=== PATIENT | female | born 1955 | race Caucasian/White ===

== ENCOUNTER 2022-01-10 12:14 | Emergency (ER) | payer OTHER, SELFPAY ==
[2022-01-10 13:00] VITALS: BP 237/125; PULSE 79; RESP 18; TEMP 37.3; O2SAT 100; BMI 31.8
[2022-01-10] MEDS: valACYclovir HCL 1,000 MG TABLET 1000 MG PO (14:35)
[2022-01-10] MEDS: Fluorescein Sodium STRIP 1 STRIP EYE-RIGHT (14:36)
[2022-01-10] MEDS: Tetracaine HCl/PF 0.5% Oph Sol 4 ML DROPS 3 DROP EYE-RIGHT (14:36)
[2022-01-10 14:37] VITALS: BP 200/120; PULSE 92; RESP 16; O2SAT 99
[2022-01-10] MEDS: Ondansetron ODT 4 MG TAB.RAPDIS TRANSLINGU (14:48)
--- NOTE | 2022-01-11 21:30 | ED.GENADULT ---
HPI - General Adult General Chief complaint: Skin/Abscess/Foreign Body Stated complaint: shingles Time Seen by Provider: 01/10/22 13:43 History of Present Illness HPI narrative: patient complains of blisters around the right eye which have been there for 5 or 6 days and now the eye itself is starting to hurt, she believes she has shingles, she denies any vision loss Related Data Previous Rx's Medication Instructions Recorded ondansetron 4 mg disintegrating 4 mg PO Q6H PRN nausea and 01/10/22 tablet vomiting #10 tabs valacyclovir 1 gram tablet 1,000 mg PO TID 7 days #21 tabs 01/10/22 (Valtrex) Allergies Allergy/AdvReac Type Severity Reaction Status Date / Time Penicillins [PENICILLINS] Allergy Mild STOMACH Verified 01/10/22 13:00 UPSET Review of Systems Review of Systems: positive for right eye pain as well as blistering rash around right eye Negatives no fever no chills no headache no vision loss no discharge from eye no neck pain no chest pain no shortness of breath no vomiting no weakness or numbness Yes all other systems are reviewed and are negative [facility] Past Medical History Source: nursing notes reviewed Social History Social History Advance Directives: No Advance Directives Information Provided: No Physical Exam ED Vital Signs: BMI result Body Mass Index 31.8 general appearance no distress There is a unilateral blistering rash consistent with shingles are on a red base surrounding the right orbit and on the right eyelid Visual acuity was done with no acute vision loss noted Neck was supple Respiratory no distress Extremities full range of motion x4 Neuro no focal deficit Course Course Course Narrative: out of concern for shingles in the right eye we called the eye doctor constanza who agreed to see the patient and she was sent over to the eye doctor It was noted that her blood pressure was very high, 237/125 and a repeat reading of 200/120 The patient has no chest pain no choke symptoms the only symptom she have with are the rash around her right eye She does not like 0 to the doctor and attributes her high blood pressure to fear of going to the doctor, I advised her that numbers this higher very likely not from fear of going to the doctor but are likely hypertension I offered to do bloods and discuss starting a medication from the ER which she refused, I did let her know she was very welcome to come back this same day after she goes to the eye doctor I also advised keeping a record at home as she was concerned this might only be from stress of being in the hospital so I advised home blood pressure cuff and keep a close record of the readings and go to a primary care doctor Her agreed to do this if she does not come back here and also agreed to facilitate a primary care appointment And I did inform her of the serious consequences of untreated high blood pressure and she will come back if she develops any concerning symptoms Discharge Plan Discharge Clinical Impression: Shingles Patient Disposition: Home, Self-Care Additional Instructions: We are concerned about the shingles around her eye socket as it can go into the eye and cause blindness and serious eye problems We called the eye doctor Jacob who can see you now so go straight to his office when you leave here Your blood pressure was very high the 1st reading was 237/125 and the 2nd reading was about 206/120 If you have no primary doctor, you can come back here for us to recheck it and if need be we would discuss whether not to start a blood pressure medication from the ER, but right now the eye doctor's office will close and that is the priority right now so go to the eye doctor and you are welcome to come back here for further evaluation of her blood pressure after the eye visit Return any time any worse condition or any concerns Prescriptions: New valacyclovir [Valtrex] 1 gram tablet 1,000 mg PO TID 7 Days Qty: 21 0RF ondansetron 4 mg tablet,disintegrating 4 mg PO Q6H PRN (Reason: nausea and vomiting) Qty: 10 0RF Referrals: Anjel Caballero [Physician] - (Shingles around the right eye) Stand Alone Forms: Work/School Release Interventions: ED Discharge Assessment Last Done: 01/10/22 14:58 Discharge Date/Time: 01/10/22 15:03
== END 2022-01-10 15:03 | disposition home or self-care (01) ==
PROVIDERS: Emergency Provider Emergency Medicine
DX: B02.9 Zoster without complications (principal)
CPT/HCPCS: 99283

== ENCOUNTER 2022-01-12 01:41 | Emergency (ER) | payer OTHER, SELFPAY ==
--- NOTE | ~2022-01-12 | CT_ITS ---
EXAMINATION: CT HEAD WITHOUT CONTRAST CLINICAL INFORMATION: Shingles. Confusion. Rule out encephalitis. COMPARISON: None TECHNIQUE: Contiguous axial imaging was performed from the skull base to vertex without intravenous administration of contrast. This CT examination was performed using dose optimization techniques as appropriate, variously including the following: *Automated exposure control *Adjustment of mA and/or kV according to patient size (this includes techniques or standardized protocols for targeted exams where dose is matched to indication/reason for exam; i.e. extremities or head) *Use of iterative reconstruction technique DLP: 608 mGy-cm FINDINGS: There is no evidence of acute intracranial hemorrhage or territorial infarction. No abnormal mass effect or midline shift is seen. Soler to white matter differentiation is well preserved. No extra-axial fluid collections are identified. No hydrocephalus. No significant volume loss. There is no abnormal attenuation within the brain parenchyma. No acute osseous abnormality. Mild right periorbital soft tissue swelling. Orbits unremarkable. The mastoid air cells and visualized portions of the paranasal sinuses are well aerated. CT/CT head/brain wo IV con IMPRESSION: No acute intracranial pathology.
--- NOTE | ~2022-01-12 | XR_ITS ---
EXAMINATION: XR CHEST CLINICAL INFORMATION: Shingles, confusion and rule out pneumonia. COMPARISON: 08/01/2013 TECHNIQUE: 2 views of the chest were obtained. FINDINGS: Normal symmetric lung volumes. No parenchymal consolidation. No pleural effusion. No pneumothorax. Cardiomediastinal silhouette and pulmonary vascularity are within normal limits. No acute osseous abnormalities. XR/XR chest 2V IMPRESSION: No acute findings
[2022-01-12 02:09] VITALS: PULSE 123; RESP 20; O2SAT 98; BMI 30.9
--- NOTE | 2022-01-12 02:10 | PC.NURSE ---
pt refused blood pressure in triage
--- NOTE | 2022-01-12 02:30 | ECG_ITS ---
Test Reason : ALTERED MENTAL Blood Pressure : / mmHG Vent. Rate : 100 BPM Atrial Rate : 100 BPM P-R Int : 160 ms QRS Dur : 102 ms QT Int : 362 ms P-R-T Axes : 062 -39 126 degrees QTc Int : 466 ms Normal sinus rhythm Left axis deviation Left ventricular hypertrophy with repolarization abnormality ( R in aVL , Juan Daniel product , Romhilt-Romero ) Abnormal ECG When compared with ECG of 01-AUG-2013 22:42, Questionable change in QRS duration T wave inversion now evident in Lateral leads Referred By: Generic ED Physician Electronically Signed By:CARLI LUONG
--- NOTE | 2022-01-12 03:01 | ED_ITS ---
HPI - General Adult General Chief complaint: General Medical Stated complaint: eye problem Time Seen by Provider: 01/12/22 02:34 Source: patient Mode of arrival: ambulatory Limitations: no limitations History of Present Illness HPI narrative: 66-year-old female who presents emergency department for evaluation of visual hallucinations, nausea, confusion. The patient was seen here in the emergency department on 01/11/2022 ( 2 days prior to evaluation) and diagnosed with shingles to the right side of her face. Apparently the patient has been having symptoms of shingles for approximately 5-6 days prior to evaluation. Patient was also noted to have very high blood pressures during that evaluation, patient was not on antihypertensives. The patient also is complaining of discomfort in her right eye therefore she was sent to the on-call crimping machine operator. Patient states she was evaluated but not started on any eyedrops for shingles. She states that yesterday she was in hotel room for her daughter's wedding. She states that while she was in no tell room she states the carpet started moving and waving an d she recognize that she was having visual hallucinations. She denied headache but states that she is having pain on the right side of her face in the area of the shingles. She denied stiff neck. She states she has been having persistent nausea has had very little to eat and drink over the past 3 days. She denied vomiting. She believes that she is very dehydrated and is requesting IV fluid. Related Data Previous Rx's Medication Instructions Recorded ondansetron 4 mg disintegrating 4 mg PO Q6H PRN nausea and 01/10/22 tablet vomiting #10 tabs valacyclovir 1 gram tablet 1,000 mg PO TID 7 days #21 tabs 01/10/22 (Valtrex) Allergies Allergy/AdvReac Type Severity Reaction Status Date / Time Penicillins [PENICILLINS] Allergy Mild STOMACH Verified 01/10/22 13:00 UPSET Review of Systems Review of Systems: Yes all other systems are reviewed and are negative [facility] Past Medical History [facility] Narrative: past medical history: Hypertension which is untreated, SVT. Past surgical history: None. 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 She denies tobacco use but is a former smoker and stop smoking in 1995. She denies alcohol use. She denies drug use. Social History Social History Alcohol intake: never Patient Tobacco Use Status: Never used Tobacco Use of substances other than those prescribed or required for medical reasons: No Advance Directives: No Advance Directives Information Provided: No Physical Exam ED Vital Signs: Vital Signs - 24 hr 01/12/22 02:09 01/12/22 03:38 01/12/22 06:22 Temperature 97.9 F 98.3 F Pulse Rate 123 H 113 H 111 H Respiratory Rate 20 16 21 H Blood Pressure 132/115 H 241/121 H Pulse Oximetry 98 98 99 Oxygen Delivery Method Room Air Room Air Room Air BMI result Body Mass Index 30.9 Const Other: Awake, alert, female patient, she does answer questions but occasionally gets confused and has difficulty answering some questions. Orientation/consciousness: oriented to person and oriented to place HENMS Other: The patient has an erythematous rash to her right forehead, around her right eye in the rash extends along the right side of her head to the septal area, there are crusted over lesions that are consistent with shingles, I do not see any new vesicular lesions. Ears: external ears normal General nose exam: Normal external nose present Mouth: Normal oral and palatal mucosa present Throat: Yes posterior oropharynx normal Eyes General: appearance normal, both eyes and all related structures Pupils: Equal, round and reactive pupils present Neck Neck: Yes normal visual inspection, Yes no lymphadenopathy, Yes trachea midline and Yes supple Chest Chest palpation & inspection: normal inspection of the chest and normal palpation of entire chest wall Resp Effort & Inspection: normal respiratory effort and able to speak in complete sentences Auscultation: clear to auscultation bilaterally Cardio Rate: regular rate Rhythm: regular rhythm Heart sounds: S1 normal heart sound present, S2 normal heart sound present and no murmurs GI Inspection: Yes normal to inspection Palpation (GI): Soft to palpation, nontender and no guarding Auscultation: normal bowel sounds General: Yes no CVA tenderness Back/Spine/Pelvis Back: no CVA tenderness Skin General skin exam: no rashes or lesions noted Neuro General: oriented to person and oriented to place Cranial nerves: Yes CN's II-XII intact bilaterally and Yes Equal, round and reactive pupils present Motor exam (neuro): 5/5 motor strength present throughout Extrem General: Yes normal to inspection Psych Appearance: grossly normal Speech and movement: Normal speech and movement present Affect: normal affect Attitude: cooperative Thought process: Other thought process findings present ( Occasionally the patient appears to be confused when answering questions) Thought content: Normal thought content present Course Course Course Narrative: 66-year-old female who presents emergency department for evaluation of visual hallucinations, confusion, right-sided facial pain secondary to shingles which she has had for approximately 1 week. The patient was seen here 2 days prior diagnosed with shingles, she was started on valacyclovir. She was also referred to Ophthalmology for evaluation of shingles of the eye but did not get started on any eyedrops. The patient has had constant nausea but has had no vomiting, she states she has had poor food and fluid intake over the past 3 days. Cris everette's neurologic exam is normal at this time. I am concerned that the patient may be developing a viral encephalitis I did discuss this with her. The patient however rejects this diagnosis and believes that her symptoms are secondary to the valacyclovir and she states she does not live take this anymore. The patient states she is very claustrophobic and she is not certain if she can do the CT scan but she is willing to try it. I did offer her medications but she refused being premedicated with any anti anxiety or psychiatric medications. I did order laboratory evaluation to include a CBC, BMP, liver panel, CRP, ESR, TSH, troponin, blood cultures x2. The patient was also ordered to get a chest x-ray two view and CT scan of the head without IV contrast. 0749: Laboratory evaluation: BUN and creatinine elevated at 47 and 4.22. GFR is low at 10. PTT elevated 76.7. High sensitivity troponin I elevated at 57.4. CPK elevated 4630. CRP elevated 0.9. ESR elevated 67. COVID-19 negative. Radiology evaluation: Chest x-ray unremarkable. CT scan of the brain without IV contrast, unremarkable. The patient the's CT scan the brain being normal is somewhat reassuring however the patient still may have viral encephalitis. I did discuss getting a lumbar puncture but she refused this intervention. I also discussed treatment with IV acyclovir but she refused this treatment as well. I did inform the patient that she has severe renal failure most likely secondary to rhabdomyolysis and possibly secondary to volume depletion /dehydration. I told her that she needs to be hospitalized for further management but she is refusing to be hospitalized at this time. The patient was going to leave against medical advice but she did agree to stay and get a total of 3 L of normal saline IV . She requested that with then repeat the BMP, troponin and CPK. I did tell her that even if these numbers improved she still would need to be hospitalized. The patient is aware that if she leaves the hospital against medical advice she could go into severe renal failure,develop uremic encephalopathy and but she still states that she does not want to stay in the hospital and that she lost to leave against medical advice. At the end of my shift, the patient's care was turned over to my colleague, Dr. Melissa Jack. Medical Decision Making Lab Data Result diagrams: 01/12/22 03:25 01/12/22 03:25 Labs: Lab Results 01/12/22 01/12/22 01/12/22 Range/Units 03:25 03:25 03:25 WBC 9.0 (4.8-10.8) X10*3/uL RBC 4.27 (4.20-5.50) X10*6/uL Hgb 12.4 (12.0-16.0) g/dl Hct 37.9 (37.0-47.0) % MCV 88.8 (80.0-98.0) fL MCH 29.0 (27.0-33.0) pg MCHC 32.7 (31.0-35.0) g/dl RDW 12.9 (11.0-16.0) % Plt Count 346 (160-400) X10*3/uL MPV 9.5 (9.4-12.3) fL Immature Gran % (Auto) 0.3 (0.0-0.4) % Neut % (Auto) 69.0 (45-73) % Lymph % (Auto) 15.9 L (20-40) % Elbert % (Auto) 12.9 H (2-11) % Eos % (Auto) 1.2 (0-4) % Baso % (Auto) 0.7 (0-2) % Lymph # (Auto) 1.4 (1.2-4.9) X10*3/uL Elbert # (Auto) 1.2 (0.1-1.2) X10*3/uL Eos # (Auto) 0.1 (0.0-0.4) X10*3/uL Baso # (Auto) 0.1 (0.0-0.2) X10*3/uL Abs Immat Gran (auto) 0.03 (0.00-0.03) X10*3/uL Absolute Neuts (auto) 6.2 (2.0-8.3) x10*3/uL Absolute Nucleated RBC 0.000 (0.0-0.012) X10*3/uL Nucleated RBC % (auto) 0.0 (0.0-0.2) /100WBC ESR 67 H (0-20) MM/HR PT (10.0-13.1) SEC INR (0.9-1.1) APTT (26.0-36.4) SEC Sodium 137 (135-145) mmol/L Potassium 4.9 (3.3-5.1) mmol/L Chloride 107 (96-108) mmol/L Carbon Dioxide 18 L (22-29) mmol/L Anion Gap 17 (12-20) BUN 47 H (9-16) mg/dL Creatinine 4.22 H* (0.5-1.4) mg/dL Estim Creat Clear Calc 12.8 Estimated GFR 10 Random Glucose 113 (60-115) mg/dL Lactic Acid (0.5-2.0) mmol/L Calcium 9.5 (8.4-10.2) mg/dL Total Bilirubin (0.0-1.0) mg/dL Direct Bilirubin (0.0-0.5) mg/dL AST (5-31) U/L ALT (0-31) U/L Alkaline Phosphatase (39-117) U/L Total Creatine Kinase (26-140) U/L Troponin I High Sens (<3.5-17.0) ng/L C-Reactive Protein (< or = 0.50) mg/dL Total Protein (6.5-8.0) g/dL Albumin (3.5-5.0) g/dL Lipase (8-78) U/L TSH (0.32-4.0) uIU/mL Ethyl Alcohol mg/dL COVID-19 ([facility]) (Negative) COVID-19 Clin Com 01/12/22 01/12/22 01/12/22 Range/Units 03:25 03:25 03:25 WBC (4.8-10.8) X10*3/uL RBC (4.20-5.50) X10*6/uL Hgb (12.0-16.0) g/dl Hct (37.0-47.0) % MCV (80.0-98.0) fL MCH (27.0-33.0) pg MCHC (31.0-35.0) g/dl RDW (11.0-16.0) % Plt Count (160-400) X10*3/uL MPV (9.4-12.3) fL Immature Gran % (Auto) (0.0-0.4) % Neut % (Auto) (45-73) % Lymph % (Auto) (20-40) % Elbert % (Auto) (2-11) % Eos % (Auto) (0-4) % Baso % (Auto) (0-2) % Lymph # (Auto) (1.2-4.9) X10*3/uL Elbert # (Auto) (0.1-1.2) X10*3/uL Eos # (Auto) (0.0-0.4) X10*3/uL Baso # (Auto) (0.0-0.2) X10*3/uL Abs Immat Gran (auto) (0.00-0.03) X10*3/uL Absolute Neuts (auto) (2.0-8.3) x10*3/uL Absolute Nucleated RBC (0.0-0.012) X10*3/uL Nucleated RBC % (auto) (0.0-0.2) /100WBC ESR (0-20) MM/HR PT 11.0 (10.0-13.1) SEC INR 1.0 (0.9-1.1) APTT 76.7 H* (26.0-36.4) SEC Sodium (135-145) mmol/L Potassium (3.3-5.1) mmol/L Chloride (96-108) mmol/L Carbon Dioxide (22-29) mmol/L Anion Gap (12-20) BUN (9-16) mg/dL Creatinine (0.5-1.4) mg/dL Estim Creat Clear Calc Estimated GFR Random Glucose (60-115) mg/dL Lactic Acid (0.5-2.0) mmol/L Calcium (8.4-10.2) mg/dL Total Bilirubin 0.5 (0.0-1.0) mg/dL Direct Bilirubin < 0.2 (0.0-0.5) mg/dL AST 141 H (5-31) U/L ALT 46 H (0-31) U/L Alkaline Phosphatase 111 (39-117) U/L Total Creatine Kinase 4630 H (26-140) U/L Troponin I High Sens 57.4 H* (<3.5-17.0) ng/L C-Reactive Protein 0.90 H (< or = 0.50) mg/dL Total Protein 7.3 (6.5-8.0) g/dL Albumin 4.3 (3.5-5.0) g/dL Lipase 27 (8-78) U/L TSH 2.26 (0.32-4.0) uIU/mL Ethyl Alcohol < 10 mg/dL COVID-19 ([facility]) (Negative) COVID-19 Clin Com 01/12/22 01/12/22 Range/Units 03:26 03:28 WBC (4.8-10.8) X10*3/uL RBC (4.20-5.50) X10*6/uL Hgb (12.0-16.0) g/dl Hct (37.0-47.0) % MCV (80.0-98.0) fL MCH (27.0-33.0) pg MCHC (31.0-35.0) g/dl RDW (11.0-16.0) % Plt Count (160-400) X10*3/uL MPV (9.4-12.3) fL Immature Gran % (Auto) (0.0-0.4) % Neut % (Auto) (45-73) % Lymph % (Auto) (20-40) % Elbert % (Auto) (2-11) % Eos % (Auto) (0-4) % Baso % (Auto) (0-2) % Lymph # (Auto) (1.2-4.9) X10*3/uL Elbert # (Auto) (0.1-1.2) X10*3/uL Eos # (Auto) (0.0-0.4) X10*3/uL Baso # (Auto) (0.0-0.2) X10*3/uL Abs Immat Gran (auto) (0.00-0.03) X10*3/uL Absolute Neuts (auto) (2.0-8.3) x10*3/uL Absolute Nucleated RBC (0.0-0.012) X10*3/uL Nucleated RBC % (auto) (0.0-0.2) /100WBC ESR (0-20) MM/HR PT (10.0-13.1) SEC INR (0.9-1.1) APTT (26.0-36.4) SEC Sodium (135-145) mmol/L Potassium (3.3-5.1) mmol/L Chloride (96-108) mmol/L Carbon Dioxide (22-29) mmol/L Anion Gap (12-20) BUN (9-16) mg/dL Creatinine (0.5-1.4) mg/dL Estim Creat Clear Calc Estimated GFR Random Glucose (60-115) mg/dL Lactic Acid 0.8 (0.5-2.0) mmol/L Calcium (8.4-10.2) mg/dL Total Bilirubin (0.0-1.0) mg/dL Direct Bilirubin (0.0-0.5) mg/dL AST (5-31) U/L ALT (0-31) U/L Alkaline Phosphatase (39-117) U/L Total Creatine Kinase (26-140) U/L Troponin I High Sens (<3.5-17.0) ng/L C-Reactive Protein (< or = 0.50) mg/dL Total Protein (6.5-8.0) g/dL Albumin (3.5-5.0) g/dL Lipase (8-78) U/L TSH (0.32-4.0) uIU/mL Ethyl Alcohol mg/dL COVID-19 ([facility]) Negative (Negative) COVID-19 Clin Com See Note Discharge Plan Discharge Clinical Impression: Acute renal failure due to rhabdomyolysis, Volume depletion, Herpes zoster, Iron lucination, visual Patient Disposition: Still a Patient Prescriptions: No Action valacyclovir [Valtrex] 1 gram tablet 1,000 mg PO TID 7 Days Qty: 21 0RF ondansetron 4 mg tablet,disintegrating 4 mg PO Q6H PRN (Reason: nausea and vomiting) Qty: 10 0RF Stand Alone Forms: Against Medical Advice
[2022-01-12] MEDS: 0.9 % Sodium Chloride 1,000 ML 999 ML IV ×3 (03:30→05:57)
[2022-01-12 03:32] LABS: MANUAL DIFF FLAG NO
[2022-01-12 03:33] LABS: Basophils Absolute Auto 0.1 X10*3/uL (0.0-0.2); Basophils Percent Auto 0.7 % (0-2); Eosinophils Absolute Auto 0.1 X10*3/uL (0.0-0.4); Eosinophils Percent Auto 1.2 % (0-4); Hematocrit 37.9 % (37.0-47.0); Hemoglobin 12.4 g/dl (12.0-16.0); Imm Gran Abs Auto 0.03 X10*3/uL (0.00-0.03); Imm Gran Pct Auto 0.3 % (0.0-0.4); Lymphocytes Absolute Auto 1.4 X10*3/uL (1.2-4.9); Lymphocytes Percent Auto 15.9 % (20-40); Mean Corpuscular HGB Conc 32.7 g/dl (31.0-35.0); Mean Corpuscular Volume 88.8 fL (80.0-98.0); Mean Platelet Volume 9.5 fL (9.4-12.3); Monocytes Absolute Auto 1.2 X10*3/uL (0.1-1.2); Monocytes Percent Auto 12.9 % (2-11); Neutrophils Absolute Auto 6.2 x10*3/uL (2.0-8.3); Platelet Count 346 X10*3/uL (160-400); Red Blood Count 4.27 X10*6/uL (4.20-5.50); Red Cell Distribution Width 12.9 % (11.0-16.0)
[2022-01-12 03:38] VITALS: BP 132/115; PULSE 113; RESP 16; TEMP 36.6; O2SAT 98
[2022-01-12 03:45] LABS: Lactic Acid 0.8 mmol/L (0.5-2.0)
[2022-01-12 03:51] LABS: Alanine Aminotransferase 46 U/L (0-31); Albumin Level 4.3 g/dL (3.5-5.0); Alkaline Phosphatase 111 U/L (39-117); Aspartate Amino Transferase 141 U/L (5-31); Bilirubin Direct < 0.2 mg/dL (0.0-0.5); Bilirubin Total 0.5 mg/dL (0.0-1.0); Ethanol < 10 mg/dL; Lipase 27 U/L (8-78); Partial Thromboplastin Time 76.7 SEC (26.0-36.4); Total Protein 7.3 g/dL (6.5-8.0)
[2022-01-12 03:53] LABS: Anion Gap 17 (12-20); Blood Urea Nitrogen 47 mg/dL (9-16); Calcium 9.5 mg/dL (8.4-10.2); Carbon Dioxide 18 mmol/L (22-29); Chloride 107 mmol/L (96-108); Creatinine Clr Calc Pharmacy 12.8; Estimated Glomerular Filt Rate 10; Glucose Random 113 mg/dL (60-115); Potassium 4.9 mmol/L (3.3-5.1); Sodium 137 mmol/L (135-145)
[2022-01-12 03:56] LABS: COVID-19 Test Negative (Negative)
[2022-01-12 03:57] LABS: Troponin-I High Sensitivity 57.4 ng/L (<3.5-17.0)
[2022-01-12 04:05] LABS: Erythrocyte Sedimentation Rate 67 MM/HR (0-20)
[2022-01-12 04:10] LABS: TSH reflex Free T4 2.26 uIU/mL (0.32-4.0)
[2022-01-12 06:22] VITALS: BP 241/121; PULSE 111; RESP 21; TEMP 36.8; O2SAT 99
--- NOTE | 2022-01-12 07:50 | PC.NURSE ---
Handoff received. Pt refuses to have vital signs done and reports not wanting to have lab work drawn this morning and would like to go home. notified.
[2022-01-12 08:31] LABS: Appearance Urine Clear; Color Urine Yellow; Glucose Urine UA Negative (Negative); Leukocyte Esterase Urine Small (1+) (Negative); Nitrite Urine Negative (Negative); Urine Blood Moderate (2+) (Negative); Urine Ketones Negative (Negative); Urine Protein 300 (3+) mg/dL (Neg-Trace)
[2022-01-12 08:43] LABS: Bacteria Urine None Seen (None Seen); Hyaline Casts Urine 0-2 /LPF (0-2); RBC Urine 0-2 /HPF (0-2); Squamous Epithelial Cell Urine 0-2 /HPF (0-2); UACC Culture Trigger YES
[2022-01-12 08:46] LABS: Amphetamine Screen Urine Not Detected (Not Detect); Barbiturates, Urine Not Detected (Not Detect); Benzodiazepines Screen Urine Not Detected (Not Detect); Cannabinoid Screen Urine Not Detected (Not Detect); Cocaine Screen Urine Not Detected (Not Detect); Fentanyl, urine Not Detected (Not Detect); Opiate Screen Urine Not Detected (Not Detect); Phencyclidine Screen Urine Not Detected (Not Detect)
--- NOTE | 2022-01-12 08:59 | PC.NURSE ---
Pt aox3. Pt is able to recall events from yesterday. Reports attending daughters wedding and not feeling well I was hallucinating after taking Valtrex. At this time pt reports desire to leave against medical advise. Stating I did the labs and I finished the 3L of fluid, my is outside and i want to leave now. Take this out of my arm please. Pointing to the IV on the left ac. MD notified and at the bedside. Pt reports wanting to go home and rest. Pt reports understanding the risk of leaving against medical advise and states I will check my labs in the patient portal. Pt AMA forms provided to pt. Pt reports understanding forms being signed and had no questions.
[2022-01-12 09:13] LABS: Anion Gap 17 (12-20); Blood Urea Nitrogen 41 mg/dL (9-16); Calcium 8.4 mg/dL (8.4-10.2); Carbon Dioxide 15 mmol/L (22-29); Chloride 114 mmol/L (96-108); Creatinine Clr Calc Pharmacy 14.6; Estimated Glomerular Filt Rate 12; Glucose Random 104 mg/dL (60-115); Potassium 4.7 mmol/L (3.3-5.1); Sodium 141 mmol/L (135-145)
[2022-01-12 09:14] LABS: Troponin-I High Sensitivity 59.9 ng/L (<3.5-17.0)
== END 2022-01-12 09:08 | disposition still patient (30) ==
PROVIDERS: Emergency Provider Emergency Medicine Emergency Medical Services
DX: M62.82 Rhabdomyolysis (principal); B02.9 Zoster without complications; R44.1 Visual hallucinations; R51.9 Headache, unspecified; R06.02 Shortness of breath; N17.9 Acute kidney failure, unspecified; Z20.822 Contact with and (suspected) exposure to COVID-19; Z79.899 Other long term (current) drug therapy
CPT/HCPCS: 36415; 70450; 71046; 80048; 80076; 80307; 81001; 82077; 82550; 83605; 83690; 84443; 84484; 85025; 85610; 85652; 85730; 86140; 87040; 87086; 87635; 93005; 99285

== ENCOUNTER 2022-01-15 11:22 | Emergency (ER) | payer OTHER, SELFPAY | END 2022-01-15 12:31 | disposition left against medical advice (07) | PROVIDERS: Emergency Provider Emergency Medicine | DX: I10 Essential (primary) hypertension (principal) ==

== ENCOUNTER 2022-01-16 09:25 | Inpatient (IN) | payer OTHER, SELFPAY ==
[2022-01-16] VITALS (16 sets, daily range): BP systolic 152–285; BP diastolic 77–153; PULSE 73–100; RESP 12–155; TEMP 37.1; O2SAT 97–100; BMI 31.8
--- NOTE | ~2022-01-16 | US_ITS ---
EXAMINATION: US RETROPERITONEAL LIMITED (RENAL ONLY) CLINICAL INFORMATION: Headache i.e.. COMPARISON: None TECHNIQUE: Routine grayscale imaging of kidneys is performed. FINDINGS: RIGHT KIDNEY: 10.4 x 5.1 x 5.0 cm (SAG x AP x TRV). The kidney is normal in size, contour, and echogenicity. Renal cortical thickness is normal. There is anechoic cyst upper pole measuring 1.0 0.9 x 0.9 seen. There are several echogenic stones with the largest stone upper pole measuring 0.6 cm. There is no caliectasis or hydronephrosis. LEFT KIDNEY: 8.4 x 5.0 x 5.3 cm (SAG x AP x TRV). The kidney is normal in size, contour, and echogenicity. Renal cortical thickness is normal. There is anechoic cyst in the upper pole measuring 1.2 x 0.9 x 0.8 cm. There are several small echogenic calculi measuring 3 mm and less. No caliectasis or hydronephrosis seen. US/US renal BI IMPRESSION: Bilateral small echogenic renal calculi but no caliectasis or hydronephrosis seen. There are bilateral renal cysts..
--- NOTE | ~2022-01-16 | US_ITS ---
EXAMINATION: ULTRASOUND RENAL DOPPLER CLINICAL INFORMATION: Hypertension. Acute kidney insufficiency. COMPARISON: Previous renal ultrasound 01/17/2022 TECHNIQUE: Grayscale color and Doppler imaging of the renal vasculature including waveform spectral analysis FINDINGS: Mid aortic peak systolic velocity measures 107 cm/s. This is too high to be used to calculate renal artery to aorta ratio. Right renal artery peak systolic velocities are normal and measure 122, 102 and 138 cm/s proximally, in the midportion and distally. Resistive indices in the segmental renal arteries in the right kidney are minimally elevated measuring 0.7-0.8. The right renal vein is patent. Left renal artery peak systolic velocities are normal and measure 159, 107 and 52 cm/s proximally, in the midportion and distally. Indices in the segmental renal arteries in the left kidney are minimally elevated measuring 0.7-0.8. The left renal vein is patent. US/US renal doppler IMPRESSION: Minimally elevated resistive indices in the segmental renal arteries in both kidneys. Otherwise unremarkable renal Doppler exam. No evidence of hemodynamically significant renal artery stenosis.
--- NOTE | 2022-01-16 09:44 | ECG_ITS ---
Test Reason : hypertension Blood Pressure : / mmHG Vent. Rate : 091 BPM Atrial Rate : 091 BPM P-R Int : 162 ms QRS Dur : 104 ms QT Int : 376 ms P-R-T Axes : 056 -33 143 degrees QTc Int : 462 ms Normal sinus rhythm Left axis deviation Left ventricular hypertrophy with repolarization abnormality ( R in aVL , Ferney product , Romhilt-Romero ) Abnormal ECG When compared with ECG of 12-JAN-2022 03:21, No significant change was found Referred By: Generic ED Physician Electronically Signed By:CARLI LUONG
[2022-01-16 11:00] LABS: MANUAL DIFF FLAG NO
[2022-01-16 11:04] LABS: Basophils Absolute Auto 0.1 X10*3/uL (0.0-0.2); Basophils Percent Auto 0.6 % (0-2); Eosinophils Absolute Auto 0.2 X10*3/uL (0.0-0.4); Eosinophils Percent Auto 1.9 % (0-4); Hematocrit 33.8 % (37.0-47.0); Hemoglobin 11.3 g/dl (12.0-16.0); Imm Gran Abs Auto 0.02 X10*3/uL (0.00-0.03); Imm Gran Pct Auto 0.3 % (0.0-0.4); Lymphocytes Absolute Auto 1.5 X10*3/uL (1.2-4.9); Lymphocytes Percent Auto 18.8 % (20-40); Mean Corpuscular HGB Conc 33.4 g/dl (31.0-35.0); Mean Corpuscular Hemoglobin 29.6 pg (27.0-33.0); Mean Corpuscular Volume 88.5 fL (80.0-98.0); Mean Platelet Volume 9.3 fL (9.4-12.3); Monocytes Absolute Auto 0.6 X10*3/uL (0.1-1.2); Monocytes Percent Auto 7.4 % (2-11); Neutrophils Absolute Auto 5.6 x10*3/uL (2.0-8.3); Platelet Count 320 X10*3/uL (160-400); Red Blood Count 3.82 X10*6/uL (4.20-5.50); Red Cell Distribution Width 12.9 % (11.0-16.0); White Blood Count 7.9 X10*3/uL (4.8-10.8)
[2022-01-16 11:09] LABS: INTERNATIONAL NORM RATIO 0.9 (0.9-1.1); Prothrombin Time 10.8 SEC (10.0-13.1)
[2022-01-16 11:15] LABS: Lactic Acid 0.7 mmol/L (0.5-2.0); Partial Thromboplastin Time 70.3 SEC (26.0-36.4)
[2022-01-16 11:21] LABS: Alanine Aminotransferase 29 U/L (0-31); Albumin Level 3.9 g/dL (3.5-5.0); Alkaline Phosphatase 98 U/L (39-117); Anion Gap 15 (12-20); Aspartate Amino Transferase 25 U/L (5-31); Bilirubin Total 0.4 mg/dL (0.0-1.0); Blood Urea Nitrogen 33 mg/dL (9-16); Calcium 9.1 mg/dL (8.4-10.2); Carbon Dioxide 16 mmol/L (22-29); Chloride 113 mmol/L (96-108); Creatinine Clr Calc Pharmacy 18.1; Estimated Glomerular Filt Rate 15; Glucose Random 117 mg/dL (60-115); Lipase 44 U/L (8-78); Sodium 139 mmol/L (135-145); Total Protein 6.8 g/dL (6.5-8.0)
[2022-01-16 11:29] LABS: Troponin-I High Sensitivity 21.7 ng/L (<3.5-17.0)
--- NOTE | 2022-01-16 12:19 | ED.GENADULT ---
HPI - General Adult General Chief complaint: General Medical Stated complaint: high blood pressure Time Seen by Provider: 01/16/22 10:04 History of Present Illness HPI narrative: 66-year-old female was seen in the emergency department by me on 01/12/2022 for evaluation of confusion, visual hallucinations secondary to herpes zoster of the right side of her scalp and face. At that time, the patient had been on valacyclovir and she felt that this medication had been making her confused, caused her to have nausea vomiting and made her dehydrated. 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 The patient attributed her confusion to lack of sleep, she states that her pain from herpes zoster gave her only 1-2 hours of sleep over 2-3 day period. The patient left against medical advice. Patient states she has a history of white coat syndrome and has elevated blood pressure readings but has never been on antihypertensives. She states that today she tried to see a primary care doctor for her elevated blood pressures however her blood pressure was very high and her PCP sent her to the emergency department for evaluation. Patient's initial blood pressure was 285/153. She has no complaints at this time. She denies nausea, vomiting, lightheadedness, dizziness. She denied chest pain, shortness of breath or dyspnea on exertion. She states she is still having pain on the right side of her head secondary to herpes zoster and she occasionally gets blurred vision in her right eye but this is symptoms that she has had since being diagnosed with herpes zoster pain Related Data Previous Rx's Medication Instructions Recorded ondansetron 4 mg disintegrating 4 mg PO Q6H PRN nausea and 01/10/22 tablet vomiting #10 tabs valacyclovir 1 gram tablet 1,000 mg PO TID 7 days #21 tabs 01/10/22 (Valtrex) Allergies Allergy/AdvReac Type Severity Reaction Status Date / Time Penicillins [PENICILLINS] Allergy Mild STOMACH Verified 01/10/22 13:00 UPSET Review of Systems Review of Systems: Yes all other systems are reviewed and are negative [facility] Past Medical History [facility] Narrative: Past medical history: Hypertension-not treat, SVT. 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 She denies tobacco use but is a former smoker and stop smoking in 1995. She denies alcohol use. She denies drug use. Social History Social History Alcohol intake: never Patient Tobacco Use Status: Never used Tobacco Use of substances other than those prescribed or required for medical reasons: No Advance Directives: No Advance Directives Information Provided: No Physical Exam ED Vital Signs: Vital Signs - 24 hr 01/16/22 09:35 01/16/22 12:01 01/16/22 14:11 Pulse Rate 99 100 85 Respiratory Rate 16 18 14 Blood Pressure 285/153 H 268/138 H 241/111 H Pulse Oximetry 97 99 100 Oxygen Delivery Method Room Air Room Air Room Air 01/16/22 14:29 01/16/22 14:43 01/16/22 15:04 Pulse Rate 76 73 75 Respiratory Rate 155 H 14 15 Blood Pressure 218/101 H 222/102 H 206/94 H Pulse Oximetry 100 99 99 Oxygen Delivery Method Room Air Room Air Room Air 01/16/22 15:38 Pulse Rate 73 Respiratory Rate 13 Blood Pressure 219/107 H Pulse Oximetry 99 Oxygen Delivery Method Room Air BMI result Body Mass Index 31.8 Const General: cooperative and no acute distress Orientation/consciousness: oriented to person and oriented to place Limitations: no limitations HENMT Other: Patient does have erythema with healing herpes zoster lesions on her right forehead, scalp and right periorbital area. Head: Yes normocephalic and Yes atraumatic Ears: external ears normal General nose exam: Normal external nose present Face and sinus: Yes normal facial exam Mouth: Normal oral and palatal mucosa present Throat: Yes posterior oropharynx normal Eyes General: appearance normal, both eyes and all related structures Pupils: Equal, round and reactive pupils present Neck Neck: Yes normal visual inspection, Yes no lymphadenopathy, Yes trachea midline and Yes supple Chest Chest palpation & inspection: normal inspection of the chest and normal palpation of entire chest wall Resp Effort & Inspection: normal respiratory effort and able to speak in complete sentences Auscultation: clear to auscultation bilaterally Cardio Rate: regular rate Rhythm: regular rhythm Heart sounds: S1 normal heart sound present, S2 normal heart sound present and no murmurs GI Inspection: Yes normal to inspection Palpation (GI): Soft to palpation, nontender and no guarding Auscultation: normal bowel sounds General: Yes no CVA tenderness Back/Spine/Pelvis Back: no CVA tenderness Skin General skin exam: no rashes or lesions noted Neuro General: oriented to person and oriented to place Cranial nerves: Yes CN's II-XII intact bilaterally and Yes Equal, round and reactive pupils present Cognition (Neuro): normal cognition Motor exam (neuro): 5/5 motor strength present throughout Extrem General: Yes normal to inspection Psych Appearance: grossly normal Speech and movement: Normal speech and movement present Affect: normal affect Attitude: cooperative Thought process: Normal thought process present Thought content: Normal thought content present Course Course Course Narrative: 66-year-old female who presents emergency department for evaluation of elevated blood pressure. Patient was recently diagnosed with herpes zoster to the right side of her scalp and face and treated with valacyclovir. She was seen by me for visual hallucinations, acute renal failure and rhabdomyolysis and then signed out against medical advice. The patient was unable to see her PCP today due to your high blood pressure and she was referred to the emergency department. The patient is relatively asymptomatic, she is having pain on the right side of her head secondary to her presents the but otherwise has no significant headache, numbness or weakness. Patient's blood pressure however was markedly elevated at 285/153. I did order laboratory evaluation which revealed anemia with an H&H of 11 and 33.8 with a normal platelet count of 655446. Patient's chloride was elevated at 113 with a low CO2 of 16. BUN and creatinine were elevated at 33 and 3.0. CK was 220. Troponin was 21.7. Patient's PTT was elevated 70.3. I did consult our golf tournament consultant on-call, Dr. Montaño and he came to the emergency department and evaluated the patient. He was able to convince the patient to stay in the hospital for further evaluation of her hypertension and renal failure. He was concerned that the patient may have vasculitis or an IgA nephropathy. He recommended admission for management of her blood pressure with IV medications. I did discuss this with the covering it security engineer, Dr. Hudson who recommended labetalol 20 mg IV Q 20 minutes x2. This medication was given and this did not improve the patient's hypertension. Therefore the patient will be started on nicardipine drip and admitted to the intensive care unit for further management Medical Decision Making Medical Records Medical records reviewed: Yes I reviewed the patient's medical records. Lab Data Lab results reviewed: Yes I reviewed the patient's lab results. Result diagrams: 01/16/22 10:53 01/16/22 10:53 Labs: Lab Results 01/16/22 01/16/22 01/16/22 Range/Units 10:53 10:53 10:53 WBC 7.9 (4.8-10.8) X10*3/uL RBC 3.82 L (4.20-5.50) X10*6/uL Hgb 11.3 L (12.0-16.0) g/dl Hct 33.8 L (37.0-47.0) % MCV 88.5 (80.0-98.0) fL MCH 29.6 (27.0-33.0) pg MCHC 33.4 (31.0-35.0) g/dl RDW 12.9 (11.0-16.0) % Plt Count 320 (160-400) X10*3/uL MPV 9.3 L (9.4-12.3) fL Immature Gran % (Auto) 0.3 (0.0-0.4) % Neut % (Auto) 71.0 (45-73) % Lymph % (Auto) 18.8 L (20-40) % [place] % (Auto) 7.4 (2-11) % Eos % (Auto) 1.9 (0-4) % Baso % (Auto) 0.6 (0-2) % Lymph # (Auto) 1.5 (1.2-4.9) X10*3/uL [place] # (Auto) 0.6 (0.1-1.2) X10*3/uL Eos # (Auto) 0.2 (0.0-0.4) X10*3/uL Baso # (Auto) 0.1 (0.0-0.2) X10*3/uL Abs Immat Gran (auto) 0.02 (0.00-0.03) X10*3/uL Absolute Neuts (auto) 5.6 (2.0-8.3) x10*3/uL Absolute Nucleated RBC 0.000 (0.0-0.012) X10*3/uL Nucleated RBC % (auto) 0.0 (0.0-0.2) /100WBC PT 10.8 (10.0-13.1) SEC INR 0.9 (0.9-1.1) APTT 70.3 H* (26.0-36.4) SEC Sodium 139 (135-145) mmol/L Potassium 5.0 (3.3-5.1) mmol/L Chloride 113 H (96-108) mmol/L Carbon Dioxide 16 L (22-29) mmol/L Anion Gap 15 (12-20) BUN 33 H (9-16) mg/dL Creatinine 3.04 H (0.5-1.4) mg/dL Estim Creat Clear Calc 18.1 Estimated GFR 15 Random Glucose 117 H (60-115) mg/dL Lactic Acid (0.5-2.0) mmol/L Calcium 9.1 D (8.4-10.2) mg/dL Total Bilirubin 0.4 (0.0-1.0) mg/dL AST 25 D (5-31) U/L ALT 29 (0-31) U/L Alkaline Phosphatase 98 (39-117) U/L Total Creatine Kinase 220 H D (26-140) U/L Troponin I High Sens (<3.5-17.0) ng/L Total Protein 6.8 (6.5-8.0) g/dL Albumin 3.9 (3.5-5.0) g/dL Lipase 44 (8-78) U/L Urine Color Urine Appearance Urine pH (5.0-9.0) Ur Specific [place] (1.005-1.025) Urine Protein (Neg-Trace) mg/dL Urine Glucose (UA) (Negative) mg/dL Urine Ketones (Negative) mg/dL Urine Blood (Negative) Urine Nitrite (Negative) Ur Leukocyte Esterase (Negative) Urine RBC (0-2) /HPF Urine WBC (0-5) /HPF Ur Squamous Epith Cells (0-2) /HPF Urine Bacteria (None Seen) Hyaline Casts (0-2) /LPF 01/16/22 01/16/22 01/16/22 Range/Units 10:53 10:53 13:06 WBC (4.8-10.8) X10*3/uL RBC (4.20-5.50) X10*6/uL Hgb (12.0-16.0) g/dl Hct (37.0-47.0) % MCV (80.0-98.0) fL MCH (27.0-33.0) pg MCHC (31.0-35.0) g/dl RDW (11.0-16.0) % Plt Count (160-400) X10*3/uL MPV (9.4-12.3) fL Immature Gran % (Auto) (0.0-0.4) % Neut % (Auto) (45-73) % Lymph % (Auto) (20-40) % [place] % (Auto) (2-11) % Eos % (Auto) (0-4) % Baso % (Auto) (0-2) % Lymph # (Auto) (1.2-4.9) X10*3/uL [place] # (Auto) (0.1-1.2) X10*3/uL Eos # (Auto) (0.0-0.4) X10*3/uL Baso # (Auto) (0.0-0.2) X10*3/uL Abs Immat Gran (auto) (0.00-0.03) X10*3/uL Absolute Neuts (auto) (2.0-8.3) x10*3/uL Absolute Nucleated RBC (0.0-0.012) X10*3/uL Nucleated RBC % (auto) (0.0-0.2) /100WBC PT (10.0-13.1) SEC INR (0.9-1.1) APTT (26.0-36.4) SEC Sodium (135-145) mmol/L Potassium (3.3-5.1) mmol/L Chloride (96-108) mmol/L Carbon Dioxide (22-29) mmol/L Anion Gap (12-20) BUN (9-16) mg/dL Creatinine (0.5-1.4) mg/dL Estim Creat Clear Calc Estimated GFR Random Glucose (60-115) mg/dL Lactic Acid 0.7 (0.5-2.0) mmol/L Calcium (8.4-10.2) mg/dL Total Bilirubin (0.0-1.0) mg/dL AST (5-31) U/L ALT (0-31) U/L Alkaline Phosphatase (39-117) U/L Total Creatine Kinase (26-140) U/L Troponin I High Sens 21.7 H D (<3.5-17.0) ng/L Total Protein (6.5-8.0) g/dL Albumin (3.5-5.0) g/dL Lipase (8-78) U/L Urine Color Yellow Urine Appearance Clear Urine pH 5.5 (5.0-9.0) Ur Specific [place] 1.015 (1.005-1.025) Urine Protein >=1000 (4+) H (Neg-Trace) mg/dL Urine Glucose (UA) Negative (Negative) mg/dL Urine Ketones Negative (Negative) mg/dL Urine Blood Small (1+) H (Negative) Urine Nitrite Negative (Negative) Ur Leukocyte Esterase Small (1+) H (Negative) Urine RBC 0-2 (0-2) /HPF Urine WBC 11-20 H (0-5) /HPF Ur Squamous Epith Cells 6-10 (0-2) /HPF Urine Bacteria None Seen (None Seen) Hyaline Casts 3-5 (0-2) /LPF Critical Care Time Critical Care Time Critical Care Time: Yes Total Critical Care Time: 45 Attestation: Critical Care: The patient was critically ill with a high probability of imminent or life threatening deterioration. I spent greater than 30 minutes of discontinuous time evaluating the patient,delivering critical care at the bedside, discussing and evaluating pertinent data with consultants. Critical care time does not include time spent performing separately billable procedures or teaching. Total time spent performing critical care was 45 minutes. Discharge Plan Discharge Patient Disposition: Admitted As Inpatient Prescriptions: No Action valacyclovir [Valtrex] 1 gram tablet 1,000 mg PO TID 7 Days Qty: 21 0RF ondansetron 4 mg tablet,disintegrating 4 mg PO Q6H PRN (Reason: nausea and vomiting) Qty: 10 0RF
[2022-01-16 13:23] LABS: Appearance Urine Clear; Color Urine Yellow; Glucose Urine UA Negative (Negative); Leukocyte Esterase Urine Small (1+) (Negative); Nitrite Urine Negative (Negative); PH 5.5 (5.0-9.0); Specific Gravity - Urine 1.015 (1.005-1.025); Urine Blood Small (1+) (Negative); Urine Ketones Negative (Negative); Urine Protein >=1000 (4+) mg/dL (Neg-Trace)
[2022-01-16 13:26] LABS: UACC Culture Trigger YES
[2022-01-16 13:37] LABS: Bacteria Urine None Seen (None Seen); RBC Urine 0-2 /HPF (0-2)
[2022-01-16] MEDS: Labetalol HCL 100 MG/20 ML VIAL 20 MG IVPUSH (14:14)
--- NOTE | 2022-01-16 16:13 | PM.CCHP ---
History of Present Illness Date of Service: 01/16/22 Chief Complaint: hypertensive emergency 66-year-old lady with recent history of facial Zoster treated with valacyclovir complicated by rhabdomyolysis and renal failure now being admitted After sent from her primary care office for hypertensive crisis with systolic blood pressure in 240s. On ER evaluation patient with hypertensive emergency poorly responsive to initial parenteral labetalol requiring initiation of Cardene drip. Review of Systems Constitutional: Constitutional: Denies daytime sleepiness, Denies excessive sweating, Denies fatigue, Denies fever(s), Denies lethargy, Denies malaise, Denies night sweats, Denies snoring and Denies weight loss Eyes: Eyes: Denies blurry vision and Denies itchy eyes ENT: Denies nasal congestion, Denies post nasal drip, Denies sinus pain, Denies sinus pressure and Denies other ( Thrush) Cardiovascular: Cardiovascular: Denies chest pain, Denies pedal edema, Denies dyspnea, Denies orthopnea and Denies paroxysmal nocturnal dyspnea Respiratory: Respiratory: Denies cough, Denies hemoptysis, Denies excessive phlegm production, Denies dyspnea, Denies snoring and Denies wheezing Gastrointestinal: Gastrointestinal: Denies abdominal pain and Denies heartburn Musculoskeletal: Musculoskeletal: Denies myalgias, Denies arthralgias and Denies joint swelling Integumentary/Breasts: Skin/Breast: Denies rash Neurologic: Denies memory loss and Denies seizure-like activity Psychiatric: Psychiatric: Denies abnormal sleep pattern, Denies anxiety and Denies memory loss Endocrine: Endocrine: Denies excessive sweating, Denies fatigue and Denies heat intolerance Hematologic/Lymphatic: Hematologic/Lymphatic: Denies easy bruising Allergic/Immunologic: Allergic/Immunologic: Denies itchy eyes, Denies seasonal rhinorrhea and Denies wheezing PMFSH Social History Social History Alcohol intake: never Patient Tobacco Use Status: Never used Tobacco Use of substances other than those prescribed or required for medical reasons: No Advance Directives: No Advance Directives Information Provided: No Meds Allergies Allergy/AdvReac Type Severity Reaction Status Date / Time Penicillins [PENICILLINS] Allergy Mild STOMACH Verified 01/10/22 13:00 UPSET Active Medications: Current Medications Amlodipine Besylate (Amlodipine Besylate 10 Mg Tablet) 10 mg PO DAILY VIPUL; Protocol Clonidine (Clonidine 0.3 Mg Patch.Tdwk) 0.3 mg TRANSDERMA ONCE ONE; Protocol Stop: 01/16/22 16:12 Heparin Sodium (Porcine) (Heparin Sodium,Porcine 5,000 Unit/Ml Vial) 5,000 unit SUBCUT Q8H VIPUL Nicardipine HCl 25 mg/ Sodium (Chloride) 260 mls @ 0 mls/hr IVCONT .Q0M VIPUL; Protocol Physical Exam Vital Signs: Vital Signs: Last Vital Signs Pulse 73 01/16/22 15:38 Resp 13 01/16/22 15:38 BP 219/107 H 01/16/22 15:38 Pulse Ox 99 01/16/22 15:38 O2 Del Method 01/16/22 15:38 BMI result Body Mass Index 31.8 Const: General: no acute distress and alert Nutritional Appearance: not obese Orientation/consciousness: Other orientation findings ( oriented) HEENT: Head: Yes atraumatic Mouth: no other ( thrush) Throat: No postnasal drainage Eyes: General: appearance normal, both eyes and all related structures Sclerae: sclerae normal EOM: EOMs intact bilaterally Neck: Neck: Yes supple Lymphatic: no lymphadenopathy noted Resp: Effort & Inspection: normal respiratory effort and no use of accessory muscles Auscultation: clear to auscultation bilaterally Cardio: Rate: regular rate Rhythm: regular rhythm Heart sounds: no gallops, no murmurs and no rubs GI: Palpation (GI): Soft to palpation and Other GI palpation findings present ( nontender) Skin: General skin exam: other ( warm) Rashes: no rashes Extrem: General: No clubbing, No cyanosis and No edema Results Labs CBC and Chem 7: 01/16/22 10:53 01/16/22 10:53 Labs: Laboratory Results - last 24 hr 01/16/22 01/16/22 01/16/22 10:53 10:53 10:53 MCV 88.5 MCH 29.6 MCHC 33.4 RDW 12.9 Plt Count 320 MPV 9.3 L Immature Gran % (Auto) 0.3 Neut % (Auto) 71.0 Lymph % (Auto) 18.8 L [place] % (Auto) 7.4 Eos % (Auto) 1.9 Baso % (Auto) 0.6 Lymph # (Auto) 1.5 [place] # (Auto) 0.6 Eos # (Auto) 0.2 Baso # (Auto) 0.1 Abs Immat Gran (auto) 0.02 Absolute Neuts (auto) 5.6 Absolute Nucleated RBC 0.000 Nucleated RBC % (auto) 0.0 PT 10.8 INR 0.9 APTT 70.3 H* Anion Gap 15 Estim Creat Clear Calc 18.1 Estimated GFR 15 Random Glucose 117 H Lactic Acid Calcium 9.1 D Total Bilirubin 0.4 AST 25 D ALT 29 Alkaline Phosphatase 98 Total Creatine Kinase 220 H D Total Protein 6.8 Albumin 3.9 Lipase 44 Urine Color Urine Appearance Urine pH Ur Specific [place] Urine Protein Urine Glucose (UA) Urine Ketones Urine Blood Urine Nitrite Ur Leukocyte Esterase Urine RBC Urine WBC Ur Squamous Epith Cells Urine Bacteria Hyaline Casts 01/16/22 01/16/22 10:53 13:06 MCV MCH MCHC RDW Plt Count MPV Immature Gran % (Auto) Neut % (Auto) Lymph % (Auto) [place] % (Auto) Eos % (Auto) Baso % (Auto) Lymph # (Auto) [place] # (Auto) Eos # (Auto) Baso # (Auto) Abs Immat Gran (auto) Absolute Neuts (auto) Absolute Nucleated RBC Nucleated RBC % (auto) PT INR APTT Anion Gap Estim Creat Clear Calc Estimated GFR Random Glucose Lactic Acid 0.7 Calcium Total Bilirubin AST ALT Alkaline Phosphatase Total Creatine Kinase Total Protein Albumin Lipase Urine Color Yellow Urine Appearance Clear Urine pH 5.5 Ur Specific [place] 1.015 Urine Protein >=1000 (4+) H Urine Glucose (UA) Negative Urine Ketones Negative Urine Blood Small (1+) H Urine Nitrite Negative Ur Leukocyte Esterase Small (1+) H Urine RBC 0-2 Urine WBC 11-20 H Ur Squamous Epith Cells 6-10 Urine Bacteria None Seen Hyaline Casts 3-5 Assessment and Plan (1) Hypertensive emergency: Status: Acute (2) Acute renal failure: Status: Acute Plan Assessment: 66-year-old lady admitted with hypertensive emergency and acute renal failure requiring Cardene drip. Plan: Neuro: No acute issues Cardiac: Hypertensive emergency, unclear etiology, continue to titrate off Cardene drip as tolerated. Pulmonary: No acute issues. Renal: Acute renal failure with resolving rhabdomyolysis. Nephrology service care appreciated. Continue to monitor renal indices and urine output. Endo: No acute issues. GI: No acute issues. ID: No acute issues Heme/Onc: No acute issues. Psych: No acute issues. Miscellaneous: No acute issues. Prophylaxis: Heparin Diet: regular Critical care time spent: 45 minutes
--- NOTE | 2022-01-16 16:36 | PHA.MEDREC ---
Pharmacy Consult ? Medication Reconciliation Pharmacy has completed the medication reconciliation. Patient reports only taking OTC medications. Suyapa Duncan, NancyD
[2022-01-16] MEDS: amLODIPine Besylate 10 MG TABLET PO (16:59)
[2022-01-16] MEDS: cloNIDine 0.3 MG PATCH.TDWK TRANSDERMA (17:01)
[2022-01-16] MEDS: Heparin Sodium,Porcine 5,000 UNIT/ML VIAL 5000 UNIT SUBCUT (17:03)
[2022-01-16] MEDS: niCARdipine HCL 25 MG in 0.9 % Sodium Chloride 250 ML 52 MG IVCONT ×2 (17:07→21:56)
--- NOTE | 2022-01-16 17:12 | PC.NURSE ---
Pt started on nicardipine drip. Pt updated on plans to send to ICU. Pt also given po and transdermal ordered medications. Denies CP or dizziness at this time.
--- NOTE | 2022-01-16 18:31 | PM.CNNEP ---
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 She was found to be hypertensive with abnormal renal functions but was thought to have white coat effect and was not treated at that time. She tried to make an appointment with a new PCP who asked her to come to ER given her systolic BP over 240. She remains asymptomatic. She denies any urinary complaints, m/s hematuria, joint swellings, edema, photosensitivity, epistaxis, headache, visual disturbance or any systemic complaints. She has no skin rashes and does not take NSAID's on a regular basis. She has no new bone or back pain. Nephrology has been consulted to assist in her clinical care during her current hospital stay. Review of Systems Review of Systems Yes all other systems are reviewed and are negative [facility] Social History Social History Alcohol intake: never Patient Tobacco Use Status: Never used Tobacco Use of substances other than those prescribed or required for medical reasons: No Advance Directives: No Advance Directives Information Provided: No Meds Allergies Allergy/AdvReac Type Severity Reaction Status Date / Time Penicillins [PENICILLINS] Allergy Mild STOMACH Verified 01/10/22 13:00 UPSET Active Medications: Current Medications Amlodipine Besylate (Amlodipine Besylate 10 Mg Tablet) 10 mg PO DAILY [facility]; Protocol Last Admin: 01/16/22 16:59 Dose: 10 mg Heparin Sodium (Porcine) (Heparin Sodium,Porcine 5,000 Unit/Ml Vial) 5,000 unit SUBCUT Q8H [facility] Last Admin: 01/16/22 17:03 Dose: 5,000 unit Nicardipine HCl 25 mg/ Sodium (Chloride) 260 mls @ 0 mls/hr IVCONT .Q0M [facility]; Protocol Last Admin: 01/16/22 17:07 Dose: 5 mg/hr, 52 mls/hr Home Medications Medication Instructions Recorded Confirmed Last Taken Type black cohosh 200 mg capsule 200 mg PO DAILY 01/16/22 01/16/22 Unknown History collagen-hyaluronic 1 cap PO DAILY 01/16/22 01/16/22 Unknown History pqlj-diktzdrwxf-iuco extract 490 mg capsule copper 3 mg tablet 3 mg PO DAILY 01/16/22 01/16/22 Unknown History lysine 500 mg tablet (L-Lysine) 1,000 mg PO DAILY 01/16/22 01/16/22 Unknown History multivitamin 1 tab PO DAILY 01/16/22 01/16/22 Unknown History Physical Exam Vital Signs: Last Vital Signs Pulse 86 01/16/22 18:00 Resp 16 01/16/22 18:00 BP 188/77 H 01/16/22 18:00 Pulse Ox 99 01/16/22 18:00 O2 Del Method 01/16/22 18:00 BMI result Body Mass Index 31.8 Const General: comfortable Orientation/consciousness: patient oriented x3 HEENT Head: Yes normocephalic Eyes EOM: EOMs intact bilaterally Neck Neck: Yes supple Resp Auscultation: diminished lung sounds Cardio Rate: regular rate GI Palpation (GI): Soft to palpation Skin General skin exam: no rashes or lesions noted Neuro General: patient oriented x3 and moves all extremities Results Lab Results Result Diagrams: 01/16/22 10:53 01/16/22 10:53 Lab results: Chemistry 01/16/22 10:53 Sodium 139 Potassium 5.0 Carbon Dioxide 16 L BUN 33 H Creatinine 3.04 H Calcium 9.1 D Hematology 01/16/22 10:53 WBC 7.9 Hgb 11.3 L Plt Count 320 Urinalysis 01/16/22 13:06 Urine Color Yellow Urine Appearance Clear Urine pH 5.5 Ur Specific [place] 1.015 Urine Protein >=1000 (4+) H Urine Glucose (UA) Negative Urine Ketones Negative Urine Blood Small (1+) H Urine Nitrite Negative Ur Leukocyte Esterase Small (1+) H Urine RBC 0-2 Urine WBC 11-20 H Ur Squamous Epith Cells 6-10 Hyaline Casts 3-5 Assessment and Plan (1) Acute renal failure: Status: Acute (2) Hypertensive urgency: Status: Acute Plan Likely has untreated renal disease which lead to hypertensive urgency Has blood and protein in urine/LVH; Needs to R/O GN ? ANCA vs IgA( investigations ordered) Needs Nicardipine drip. Will need Renal USS/ Doppler of renal arteries when BP better No ACEI/ARB for now. If acidosis continues, needs NaHCO3. No indication for HD now Will need renal biopsy after weekend.Further management is pending evolving data Procedures Date of Service Date of Service: 01/16/22
[2022-01-16 19:04] LABS: Lactate Dehydrogenase 332 U/L (122-220)
[2022-01-16 19:27] LABS: Prothrombin Time 11.1 SEC (10.0-13.1)
[2022-01-16 21:34] LABS: Total Protein Urine Random 361 mg/dL (<12)
[2022-01-16] MEDS: Acetaminophen 325 MG TABLET 650 MG PO (21:55)
[2022-01-17] VITALS (23 sets, daily range): BP systolic 149–215; BP diastolic 74–98; PULSE 66–93; RESP 8–78; TEMP 36.6–37.1; O2SAT 92–99; BMI 33.7
[2022-01-17] MEDS: niCARdipine HCL 25 MG in 0.9 % Sodium Chloride 250 ML 52 MG IVCONT ×2 (02:34→07:51)
--- NOTE | 2022-01-17 04:10 | PC.NURSE ---
CARE ASSUMED 23:15...ALERT..ORIENTED X3..RESPIRATIONS EASY ROOM AIR..CARDENE DRIP 5 MG/HR..SBP 150'S-170'S...OOB TO BEDSIDE COMMODE TO VOID..DENIES DIZZYNES...RESTFUL..REMAINS WITH SHINGLE LESIONS TO RIGHT FOREHEAD/FACE..STATES IMPROVED OVER PAST WEEK..DENIES VISUAL DEFICITS...NSR..NO ECTOPY
[2022-01-17] MEDS: Acetaminophen 325 MG TABLET 650 MG PO ×3 (04:41→19:31)
[2022-01-17 05:44] LABS: MANUAL DIFF FLAG NO
[2022-01-17 05:48] LABS: Basophils Absolute Auto 0.1 X10*3/uL (0.0-0.2); Basophils Percent Auto 0.7 % (0-2); Eosinophils Absolute Auto 0.2 X10*3/uL (0.0-0.4); Eosinophils Percent Auto 3.4 % (0-4); Hematocrit 32.9 % (37.0-47.0); Hemoglobin 10.9 g/dl (12.0-16.0); Imm Gran Abs Auto 0.03 X10*3/uL (0.00-0.03); Imm Gran Pct Auto 0.4 % (0.0-0.4); Lymphocytes Absolute Auto 2.2 X10*3/uL (1.2-4.9); Mean Corpuscular HGB Conc 33.1 g/dl (31.0-35.0); Mean Corpuscular Hemoglobin 29.1 pg (27.0-33.0); Mean Platelet Volume 9.4 fL (9.4-12.3); Monocytes Absolute Auto 0.7 X10*3/uL (0.1-1.2); Neutrophils Absolute Auto 3.8 x10*3/uL (2.0-8.3); Neutrophils Percent Auto 54.5 % (45-73); Platelet Count 298 X10*3/uL (160-400); Red Blood Count 3.74 X10*6/uL (4.20-5.50); Red Cell Distribution Width 13.1 % (11.0-16.0)
[2022-01-17 06:09] LABS: Alanine Aminotransferase 24 U/L (0-31); Albumin Level 3.7 g/dL (3.5-5.0); Alkaline Phosphatase 94 U/L (39-117); Anion Gap 16 (12-20); Aspartate Amino Transferase 19 U/L (5-31); Bilirubin Total 0.5 mg/dL (0.0-1.0); Blood Urea Nitrogen 30 mg/dL (9-16); Calcium 8.8 mg/dL (8.4-10.2); Carbon Dioxide 15 mmol/L (22-29); Chloride 113 mmol/L (96-108); Creatinine Clr Calc Pharmacy 20.2; Estimated Glomerular Filt Rate 17; Glucose Random 122 mg/dL (60-115); Magnesium 2.6 mg/dL (1.6-2.6); Phosphorus 3.7 mg/dL (2.7-4.5); Potassium 4.5 mmol/L (3.3-5.1); Sodium 139 mmol/L (135-145); Total Protein 6.4 g/dL (6.5-8.0)
[2022-01-17 07:29] LABS: HBS Num1 0.56 mIU/mL (0-7.99); HBsAGNum1 0.25 S/CO (0.00-0.99); Hepatitis A Antibody IgM 0.13 Index (0-0.79); Hepatitis B Core Antibody Nonreactive (Nonreactive); Hepatitis B Surface Antigen Negative (Negative); ~Hepatitis A Antibody IgM Nonreactive (Nonreactive); ~Hepatitis B Surface Antibody NONREACTIVE (Nonreactive); ~Hepatitis C Antibody Nonreactive (Nonreactive)
[2022-01-17] MEDS: amLODIPine Besylate 10 MG TABLET PO (07:50)
[2022-01-17] MEDS: Metoprolol Tartrate 50 MG TABLET PO (10:42)
--- NOTE | 2022-01-17 13:44 | PM.CCPN ---
Subjective Subjective Date of Service: 01/17/22 Interval History: 66-year-old lady with recent history of facial Zoster treated with valacyclovir complicated by rhabdomyolysis and renal failure now being admitted After sent from her primary care office for hypertensive crisis with systolic blood pressure in 240s. On ER evaluation patient with hypertensive emergency poorly responsive to initial parenteral labetalol requiring initiation of Cardene drip. No events overnight, titrated off Cardene. Critical Care Time (minutes): 0 Physical Exam Vital Signs: Vital Signs: Last Vital Signs Temp 98.7 F 01/17/22 12:00 Pulse 72 01/17/22 13:00 Resp 15 01/17/22 13:00 BP 159/86 H 01/17/22 13:00 Pulse Ox 98 01/17/22 13:00 O2 Del Method 01/17/22 13:00 BMI result Body Mass Index 33.7 Const: General: no acute distress, alert and awake Eyes: Sclerae: sclerae normal EOM: EOMs intact bilaterally Neck: Neck: Yes no lymphadenopathy, Yes trachea midline and Yes supple Resp: Effort & Inspection: normal respiratory effort and no respiratory distress Auscultation: clear to auscultation bilaterally Cardio: Rate: regular rate Rhythm: regular rhythm Heart sounds: no gallops, no murmurs and no rubs GI: Palpation (GI): Soft to palpation and Other GI palpation findings present ( Nontender) Auscultation: normal bowel sounds Extrem: General: Yes no pedal edema, No clubbing and No cyanosis Objective Data Labs CBC & Chem 7: 01/17/22 05:17 01/17/22 05:17 Labs: Laboratory Results - last 24 hr 01/16/22 01/16/22 01/16/22 10:53 19:12 19:13 WBC RBC Hgb Hct MCV MCH MCHC RDW Plt Count MPV Immature Gran % (Auto) Neut % (Auto) Lymph % (Auto) [place] % (Auto) Eos % (Auto) Baso % (Auto) Lymph # (Auto) [place] # (Auto) Eos # (Auto) Baso # (Auto) Abs Immat Gran (auto) Absolute Neuts (auto) Absolute Nucleated RBC Nucleated RBC % (auto) PT 11.1 INR 1.0 Sodium Potassium Chloride Carbon Dioxide Anion Gap BUN Creatinine Estim Creat Clear Calc Estimated GFR Random Glucose Calcium Phosphorus Magnesium Total Bilirubin AST ALT Alkaline Phosphatase Lactate Dehydrogenase 332 H Total Protein Albumin U Random Total Protein Hepatitis A IgM Ab Nonreactive Hep Bs Antigen Negative Hep Bs Antibody NONREACTIVE Hep B Core Total Ab Nonreactive Hepatitis C Ab (EIA) Nonreactive 01/16/22 01/17/22 01/17/22 20:45 05:17 05:17 WBC 7.0 RBC 3.74 L Hgb 10.9 L Hct 32.9 L MCV 88.0 MCH 29.1 MCHC 33.1 RDW 13.1 Plt Count 298 MPV 9.4 Immature Gran % (Auto) 0.4 Neut % (Auto) 54.5 Lymph % (Auto) 31.0 [place] % (Auto) 10.0 Eos % (Auto) 3.4 Baso % (Auto) 0.7 Lymph # (Auto) 2.2 [place] # (Auto) 0.7 Eos # (Auto) 0.2 Baso # (Auto) 0.1 Abs Immat Gran (auto) 0.03 Absolute Neuts (auto) 3.8 Absolute Nucleated RBC 0.000 Nucleated RBC % (auto) 0.0 PT INR Sodium 139 Potassium 4.5 Chloride 113 H Carbon Dioxide 15 L Anion Gap 16 BUN 30 H Creatinine 2.80 H Estim Creat Clear Calc 20.2 Estimated GFR 17 Random Glucose 122 H Calcium 8.8 Phosphorus 3.7 Magnesium 2.6 Total Bilirubin 0.5 AST 19 ALT 24 Alkaline Phosphatase 94 Lactate Dehydrogenase Total Protein 6.4 L Albumin 3.7 U Random Total Protein 361 H Hepatitis A IgM Ab Hep Bs Antigen Hep Bs Antibody Hep B Core Total Ab Hepatitis C Ab (EIA) Microbiology Microbiology Results: Microbiology 01/16/22 Unknown Urine clean catch - Urine orellana top Urine Culture - Final Progress Note: A&P Assessment and plan (1) Hypertensive emergency: Status: Acute (2) Acute renal failure: Status: Acute Plan Assessment: 66-year-old lady admitted with hypertensive emergency and acute renal failure requiring Cardene drip. Plan: Neuro: No acute issues Cardiac: Hypertensive emergency, unclear etiology, titrated off Cardene on p.o. meds. Pulmonary: No acute issues. Renal: Acute renal failure with resolving rhabdomyolysis. Nephrology service care appreciated. Continue to monitor renal indices and urine output. Endo: No acute issues. GI: No acute issues. ID: Recent history of facial Zoster treated with valcyclovir, vesicles are crusted at this time. Heme/Onc: No acute issues. Psych: No acute issues. Miscellaneous: No acute issues. Prophylaxis: Heparin Diet: regular Quality Stroke Does the patient have a stroke diagnosis?: No VTE Prior VTE?: No VTE Risk Level:: Medical - moderate - high VTE Device Contraindication: Treatment Not Indicated VTE Drug Contraindication: N/A - Med Ordered
--- NOTE | 2022-01-17 14:55 | MHC.CM.PN ---
Met w/pt to discuss d/c planning needs: pt resides at home with spouse, works, drives and offers no barriers to care. HCP copy requested: no needs anticipated: pt to contact family for transportation home.
--- NOTE | 2022-01-17 16:00 | P.PNNP_ITS ---
Subjective Subjective Date of Service: 01/17/22 Interval history: 66-year-old lady with recent history of facial Zoster treated with valacyclovir. She was sent here from her primary care office for hypertensive crisis with systolic blood pressure in 240s. On ER evaluation patient with hypertensive emergency poorly responsive to initial parenteral labetalol. Creat was noted to be elevated at 3 mg/dl and she had significant proteinuria. BP has improved on nicardipine drip and creat 2.8 today. UA with proteinuria. Nondiabetic. Had not been on any anti-hypertensives prior to admission. Denies rash. Physical Exam Vital Signs: Vital Signs: Last Vital Signs Temp 98.7 F 01/17/22 12:00 Pulse 72 01/17/22 14:00 Resp 13 01/17/22 14:00 BP 164/87 H 01/17/22 14:00 Pulse Ox 98 01/17/22 14:00 O2 Del Method 01/17/22 14:00 BMI result Body Mass Index 33.7 Const: General: cooperative, comfortable, no acute distress, alert and awake Nutritional Appearance: not obese Orientation/consciousness: oriented to person, oriented to place, patient oriented x3 and Other orientation findings ( oriented) Limitations: no limitations HEENT: Other: Patient does have erythema with healing herpes zoster lesions on her right forehead, scalp and right periorbital area. Head: Yes normocephalic and Yes atraumatic Ears: external ears normal General nose exam: Normal external nose present Face and sinus: Yes normal facial exam Mouth: Normal oral and palatal mucosa present and no other ( thrush) Throat: Yes posterior oropharynx normal and No postnasal drainage Eyes: General: appearance normal, both eyes and all related structures Sclerae: sclerae normal Pupils: Equal, round and reactive pupils present EOM: EOMs intact bilaterally Neck: Neck: Yes normal visual inspection, Yes no lymphadenopathy, Yes trachea midline and Yes supple Lymphatic: no lymphadenopathy noted Chest: Chest palpation & inspection: normal inspection of the chest and normal palpation of entire chest wall Resp: Effort & Inspection: normal respiratory effort, able to speak in complete sentences, no respiratory distress and no use of accessory muscles Auscultation: clear to auscultation bilaterally and diminished lung sounds Cardio: Rate: regular rate Rhythm: regular rhythm Heart sounds: S1 normal heart sound present, S2 normal heart sound present, no gallops, no murmurs and no rubs GI: Inspection: Yes normal to inspection Palpation (GI): Soft to palpation, nontender, no guarding and Other GI palpation findings present ( Nontender) Auscultation: normal bowel sounds : General: Yes no CVA tenderness Back/Spine/Pelvis: Back: no CVA tenderness Skin: General skin exam: no rashes or lesions noted and other ( warm) Rashes: no rashes Neuro: General: oriented to person, oriented to place, patient oriented x3 and moves all extremities Cranial nerves: Yes CN's II-XII intact bilaterally and Yes Equal, round and reactive pupils present Cognition (Neuro): normal cognition Motor exam (neuro): 5/5 motor strength present throughout Extrem: General: Yes normal to inspection, Yes no pedal edema, No clubbing, No cyanosis and No edema Psych: Appearance: grossly normal Speech and movement: Normal speech and movement present Affect: normal affect Attitude: cooperative Thought process: Normal thought process present Thought content: Normal thought content present Objective Data Labs CBC & Chem 7: 01/17/22 05:17 01/17/22 05:17 Labs: Laboratory Results - last 24 hr 01/16/22 01/16/22 01/16/22 10:53 19:12 19:13 WBC RBC Hgb Hct MCV MCH MCHC RDW Plt Count MPV Immature Gran % (Auto) Neut % (Auto) Lymph % (Auto) [place] % (Auto) Eos % (Auto) Baso % (Auto) Lymph # (Auto) [place] # (Auto) Eos # (Auto) Baso # (Auto) Abs Immat Gran (auto) Absolute Neuts (auto) Absolute Nucleated RBC Nucleated RBC % (auto) PT 11.1 INR 1.0 Sodium Potassium Chloride Carbon Dioxide Anion Gap BUN Creatinine Estim Creat Clear Calc Estimated GFR Random Glucose Calcium Phosphorus Magnesium Total Bilirubin AST ALT Alkaline Phosphatase Lactate Dehydrogenase 332 H Total Protein Albumin U Random Total Protein Hepatitis A IgM Ab Nonreactive Hep Bs Antigen Negative Hep Bs Antibody NONREACTIVE Hep B Core Total Ab Nonreactive Hepatitis C Ab (EIA) Nonreactive 01/16/22 01/17/22 01/17/22 20:45 05:17 05:17 WBC 7.0 RBC 3.74 L Hgb 10.9 L Hct 32.9 L MCV 88.0 MCH 29.1 MCHC 33.1 RDW 13.1 Plt Count 298 MPV 9.4 Immature Gran % (Auto) 0.4 Neut % (Auto) 54.5 Lymph % (Auto) 31.0 [place] % (Auto) 10.0 Eos % (Auto) 3.4 Baso % (Auto) 0.7 Lymph # (Auto) 2.2 [place] # (Auto) 0.7 Eos # (Auto) 0.2 Baso # (Auto) 0.1 Abs Immat Gran (auto) 0.03 Absolute Neuts (auto) 3.8 Absolute Nucleated RBC 0.000 Nucleated RBC % (auto) 0.0 PT INR Sodium 139 Potassium 4.5 Chloride 113 H Carbon Dioxide 15 L Anion Gap 16 BUN 30 H Creatinine 2.80 H Estim Creat Clear Calc 20.2 Estimated GFR 17 Random Glucose 122 H Calcium 8.8 Phosphorus 3.7 Magnesium 2.6 Total Bilirubin 0.5 AST 19 ALT 24 Alkaline Phosphatase 94 Lactate Dehydrogenase Total Protein 6.4 L Albumin 3.7 U Random Total Protein 361 H Hepatitis A IgM Ab Hep Bs Antigen Hep Bs Antibody Hep B Core Total Ab Hepatitis C Ab (EIA) Microbiology Microbiology Results: Microbiology 01/16/22 Unknown Urine clean catch - Urine orellana top Urine Culture - Final Procedures Date of Service Date of Service: 01/17/22 Assessment & Plan Assessment and plan (1) Acute renal failure: Status: Acute Assessment and Plan: Pt has reduced GFR; we have no information about trajectory of kidney disease: this could be either acute or chronic. Certainly she has some degree of acute injury due to uncontrolled HTN. Needs renal US and awaiting serologic workup and may well need renal biopsy over next month sometime once BP is better controlled. Creat stable over last 24 hrs. Needs renal US to size kidneys. (2) Hypertensive urgency: Status: Acute Assessment and Plan: Pt remains hypertensive; she is demanding to be discharged tomorrow. therefore, would transitiion to either Amlodipine 10 or nifedipine 60 mg daily and Labetolol 300 mg tid as tolerated by pulse or carvedilol 25 mg bid She will need close renal followup at discharge and arrangements for renal biopsy Plan See above: Get renal US Await serologies Transition to oral meds for anticipated discharge Progress Note: Quality Stroke Does the patient have a stroke diagnosis?: No
--- NOTE | 2022-01-17 18:41 | PC.NURSE ---
181-Dean Bloom contacted regarding pt's increased SBP 180-190s. no orders received. 183-DEAN Bloom contacted regarding Increased SBP. Left arm is 211 systolic, rt arm 215 systolic. pt is not displaying any other symptoms at this time. 184-Ultrasound at bedside.
[2022-01-17] MEDS: hydrALAZINE HCl 20 MG/ML VIAL 5 MG IVPUSH ×2 (19:31→23:45)
[2022-01-17] MEDS: carvediloL 25 MG TABLET PO (19:37)
[2022-01-18] VITALS (9 sets, daily range): BP systolic 162–195; BP diastolic 86–92; PULSE 72–84; RESP 12–18; TEMP 36.4–36.9; O2SAT 96–98; BMI 33.6
[2022-01-18] MEDS: Acetaminophen 325 MG TABLET 650 MG PO ×3 (01:16→16:52)
[2022-01-18 05:31] LABS: MANUAL DIFF FLAG NO
[2022-01-18] MEDS: hydrALAZINE HCl 20 MG/ML VIAL 5 MG IVPUSH (05:41)
[2022-01-18 05:43] LABS: Basophils Absolute Auto 0.1 X10*3/uL (0.0-0.2); Basophils Percent Auto 0.8 % (0-2); Eosinophils Absolute Auto 0.4 X10*3/uL (0.0-0.4); Eosinophils Percent Auto 5.1 % (0-4); Hematocrit 34.6 % (37.0-47.0); Hemoglobin 11.4 g/dl (12.0-16.0); Imm Gran Abs Auto 0.05 X10*3/uL (0.00-0.03); Imm Gran Pct Auto 0.6 % (0.0-0.4); Lymphocytes Absolute Auto 2.5 X10*3/uL (1.2-4.9); Lymphocytes Percent Auto 29.1 % (20-40); Mean Corpuscular HGB Conc 32.9 g/dl (31.0-35.0); Mean Platelet Volume 9.3 fL (9.4-12.3); Monocytes Absolute Auto 0.8 X10*3/uL (0.1-1.2); Monocytes Percent Auto 9.5 % (2-11); Neutrophils Absolute Auto 4.7 x10*3/uL (2.0-8.3); Neutrophils Percent Auto 54.9 % (45-73); Platelet Count 354 X10*3/uL (160-400); Red Blood Count 3.93 X10*6/uL (4.20-5.50); Red Cell Distribution Width 13.2 % (11.0-16.0); White Blood Count 8.6 X10*3/uL (4.8-10.8)
[2022-01-18 06:02] LABS: Anion Gap 14 (12-20); Blood Urea Nitrogen 32 mg/dL (9-16); Calcium 9.2 mg/dL (8.4-10.2); Carbon Dioxide 16 mmol/L (22-29); Chloride 113 mmol/L (96-108); Creatinine Clr Calc Pharmacy 20.7; Estimated Glomerular Filt Rate 17; Glucose Random 108 mg/dL (60-115); Magnesium 2.6 mg/dL (1.6-2.6); Phosphorus 3.6 mg/dL (2.7-4.5); Potassium 4.8 mmol/L (3.3-5.1); Sodium 138 mmol/L (135-145)
[2022-01-18] MEDS: carvediloL 25 MG TABLET PO ×2 (06:40→20:14)
[2022-01-18] MEDS: amLODIPine Besylate 10 MG TABLET PO (06:41)
--- NOTE | 2022-01-18 08:59 | PC.NURSE ---
PATIENT REFUSING MORNING ASSESSMENT AND MORNING CARE.
--- NOTE | 2022-01-18 15:20 | HO.PM.IMPN ---
Subjective Subjective Date of Service: 01/18/22 Interval History: seen and examined this morning downgraded from ICU yesterday, follow up for COLTON, uncontrolled HTN BP elevated overnight, received 2 doses of IV hydralazine denies CP, SOB, vision changes Review of Systems Review of Systems: Yes all other systems are reviewed and are negative Constitutional Constitutional: Denies chills and Denies fever(s) Eyes Eyes: Denies blurry vision ENT Ears, Nose, Mouth, and Throat: Denies dizziness Cardiovascular Cardiovascular: Denies chest pain, Denies palpitations and Denies dyspnea Respiratory Respiratory: Denies cough and Denies dyspnea Gastrointestinal Gastrointestinal: Denies abdominal pain Neurologic Neurologic: Denies dizziness Endocrine Endocrine: Denies palpitations Physical Exam Vital Signs: Vital Signs: Last Vital Signs Temp 98.0 F 01/18/22 15:07 Pulse 80 01/18/22 14:56 Resp 17 01/18/22 14:56 BP 162/87 H 01/18/22 14:56 Pulse Ox 98 01/18/22 14:56 O2 Del Method 01/18/22 14:56 BMI result Body Mass Index 33.6 Const: General: comfortable, no acute distress, alert and awake Nutritional Appearance: overweight Orientation/consciousness: patient oriented x3 Resp: Effort & Inspection: normal respiratory effort and able to speak in complete sentences Cardio: Rate: regular rate Heart sounds: S1 normal heart sound present and S2 normal heart sound present GI: Palpation (GI): Soft to palpation and nontender Skin: Other: erythema, dry crusting lesions right forehead,eyelid Neuro: General: patient oriented x3 Extrem: General: Yes no pedal edema Objective Data Active Medications Acetaminophen (Acetaminophen 325 Mg Tablet) 650 mg PO Q4H PRN PRN Reason: Pain, Moderate (Pain Scale 4-6 Last Admin: 01/18/22 12:10 Dose: 650 mg Documented By: JIM Amlodipine Besylate (Amlodipine Besylate 10 Mg Tablet) 10 mg PO DAILY [facility]; Protocol Last Admin: 01/18/22 06:41 Dose: 10 mg Documented By: MARQUIS Carvedilol (Carvedilol 25 Mg Tablet) 25 mg PO BID [facility]; Protocol Last Admin: 01/18/22 06:40 Dose: 25 mg Documented By: MARQUIS Heparin Sodium (Porcine) (Heparin Sodium,Porcine 5,000 Unit/Ml Vial) 5,000 unit SUBCUT Q8H [facility] Last Admin: 01/18/22 09:13 Dose: Not Given Documented By: JIM Non-Admin Reason: Patient Refused Hydralazine HCl (Hydralazine Hcl 20 Mg/Ml Vial) 5 mg IVPUSH Q6H PRN; Protocol PRN Reason: SBP >180 DBP >105 Last Admin: 01/18/22 05:41 Dose: 5 mg Documented By: MARQUIS Labs CBC & Chem 7: 01/18/22 05:21 01/18/22 05:21 Labs: Laboratory Results - last 24 hr 01/18/22 01/18/22 05:21 05:21 MCV 88.0 MCH 29.0 MCHC 32.9 RDW 13.2 Plt Count 354 MPV 9.3 L Immature Gran % (Auto) 0.6 H Neut % (Auto) 54.9 Lymph % (Auto) 29.1 [place] % (Auto) 9.5 Eos % (Auto) 5.1 H Baso % (Auto) 0.8 Lymph # (Auto) 2.5 [place] # (Auto) 0.8 Eos # (Auto) 0.4 Baso # (Auto) 0.1 Abs Immat Gran (auto) 0.05 H Absolute Neuts (auto) 4.7 Absolute Nucleated RBC 0.000 Nucleated RBC % (auto) 0.0 Anion Gap 14 Estim Creat Clear Calc 20.7 Estimated GFR 17 Random Glucose 108 Calcium 9.2 Phosphorus 3.6 Magnesium 2.6 Microbiology Microbiology Results: Microbiology 01/16/22 Unknown Urine Culture - Final Urine clean catch - Urine orellana top Assessment and Plan (1) Hypertensive urgency: Status: Acute (2) Acute renal failure: Status: Acute Plan This is a 66 year old female initially seen on 01/11 and diagnosed with zozter, seen again in ED 01/12 with confusion and found to have rhabdo/renal failure but left ED AMA at that time, she returned 01/16 and was admitted to the ICU with COLTON and hypertensive crisis poorly responsive to IV labetalol and requiring Cardene drip, downgrade from the ICU on 01/17 Uncontrolled HTN s/p cardene drip bp still elevated but improving was not on BP meds prior to admission continue Norvasc, coreg follow bp closely nephro following Acute renal failure unclear baseline creatinine has improved from 4.22 down to 2.73 renal US showing b/l renal cysts otherwise unremarkable serologic workup pending does not want renal bx on this admission Dayna initially diagnosed 01/11 and prescribed valacyclovir seen in outpatient setting by Ophthalmology reports had hallucinations and confusion with valacyclovir and stopped it dvt ppx - heparin patient requires ongoing inpatient hospitalization due to uncontrolled hypertension and need for close blood pressure monitoring, monitoring for COLTON and renal function Quality Stroke Does the patient have a stroke diagnosis?: No VTE Prior VTE?: No VTE Risk Level:: Medical - moderate - high VTE Device Contraindication: Treatment Not Indicated VTE Drug Contraindication: N/A - Med Ordered
[2022-01-19] VITALS (9 sets, daily range): BP systolic 142–228; BP diastolic 80–115; PULSE 77–85; RESP 18–20; TEMP 36.1–36.4; O2SAT 94–99
[2022-01-19] MEDS: hydrALAZINE HCl 25 MG TABLET PO ×3 (00:29→22:59)
[2022-01-19] MEDS: Acetaminophen 325 MG TABLET 650 MG PO ×4 (00:30→20:56)
[2022-01-19] MEDS: carvediloL 25 MG TABLET PO ×2 (09:17→20:52)
[2022-01-19] MEDS: amLODIPine Besylate 10 MG TABLET PO (09:19)
[2022-01-19 11:20] LABS: Anion Gap 15 (12-20); Blood Urea Nitrogen 35 mg/dL (9-16); Carbon Dioxide 14 mmol/L (22-29); Chloride 113 mmol/L (96-108); Estimated Glomerular Filt Rate 16; Glucose Random 172 mg/dL (60-115); Potassium 4.7 mmol/L (3.3-5.1); Sodium 137 mmol/L (135-145)
--- NOTE | 2022-01-19 12:12 | P.PNNP_ITS ---
Subjective Subjective Date of Service: 01/19/22 Interval history: seen and examined this morning BP elevated overnight, received 2 doses of IV hydralazine denies CP, SOB, vision changes or rash Physical Exam Vital Signs: Vital Signs: Last Vital Signs Temp 97.5 F 01/19/22 07:41 Pulse 85 01/19/22 07:41 Resp 20 01/19/22 07:41 BP 142/80 H 01/19/22 10:03 Pulse Ox 98 01/19/22 07:41 O2 Del Method 01/19/22 07:41 BMI result Body Mass Index 33.6 Const: General: cooperative, comfortable, no acute distress, alert and awake Nutritional Appearance: not obese and overweight Orientation/consciousness: oriented to person, oriented to place, patient oriented x3 and Other orientation findings ( oriented) Limitations: no limitations HEENT: Other: Patient does have erythema with healing herpes zoster lesions on her right forehead, scalp and right periorbital area. Head: Yes normocephalic and Yes atraumatic Ears: external ears normal General nose exam: Normal external nose present Face and sinus: Yes normal facial exam Mouth: Normal oral and palatal mucosa present and no other ( thrush) Throat: Yes posterior orop harynx normal and No postnasal drainage Eyes: General: appearance normal, both eyes and all related structures Sclerae: sclerae normal Pupils: Equal, round and reactive pupils present EOM: EOMs intact bilaterally Neck: Neck: Yes normal visual inspection, Yes no lymphadenopathy, Yes trachea midline and Yes supple Lymphatic: no lymphadenopathy noted Chest: Chest palpation & inspection: normal inspection of the chest and normal palpation of entire chest wall Resp: Effort & Inspection: normal respiratory effort, able to speak in complete sentences, no respiratory distress and no use of accessory muscles Auscultation: clear to auscultation bilaterally and diminished lung sounds Cardio: Rate: regular rate Rhythm: regular rhythm Heart sounds: S1 normal heart sound present, S2 normal heart sound present, no gallops, no murmurs and no rubs GI: Inspection: Yes normal to inspection Palpation (GI): Soft to palpation, nontender, no guarding and Other GI palpation findings present ( Nontender) Auscultation: normal bowel sounds : General: Yes no CVA tenderness Back/Spine/Pelvis: Back: no CVA tenderness Skin: Other: erythema, dry crusting lesions right forehead,eyelid General skin exam: no rashes or lesions noted and other ( warm) Rashes: no rashes Neuro: General: oriented to person, oriented to place, patient oriented x3 and moves all extremities Cranial nerves: Yes CN's II-XII intact bilaterally and Yes Equal, round and reactive pupils present Cognition (Neuro): normal cog nition Motor exam (neuro): 5/5 motor strength present throughout Extrem: General: Yes normal to inspection, Yes no pedal edema, No clubbing, No cyanosis and No edema Psych: Appearance: grossly normal Speech and movement: Normal speech and movement present Affect: normal affect Attitude: cooperative Thought process: Normal thought process present Thought content: Normal thought content present Objective Data Labs CBC & Chem 7: 01/18/22 05:21 01/19/22 10:39 Labs: Laboratory Results - last 24 hr 01/19/22 10:39 Sodium 137 Potassium 4.7 Chloride 113 H Carbon Dioxide 14 L Anion Gap 15 BUN 35 H Creatinine 2.98 H Estim Creat Clear Calc 19.0 Estimated GFR 16 Random Glucose 172 H Calcium 9.0 Microbiology Microbiology Results: Microbiology 01/16/22 Unknown Urine clean catch - Urine orellana top Urine Culture - Final Procedures Date of Service Date of Service: 01/19/22 Assessment & Plan Assessment and plan (1) Hypertensive urgency: Status: Acute (2) Acute renal failure: Status: Acute Plan This is a 66 year old female initially seen on 01/11 and diagnosed with zozter, seen again in ED 01/12 with confusion and found to have rhabdo/renal failure but left ED AMA at that time, she returned 01/16 and was admitted to the ICU with COLTON and hypertensive crisis poorly responsive to IV labetalol and requiring Cardene drip. Bp not better with amlodipine, carvedilol and hydralazine. Has proteinuria and hematuria. Serologies pending for workup of intrinsic renal process. She declines biopsy at this time. Renal US shos unilateral renal atrophy: 8.4 and 10.4 cm kidneys raising suspicion for KALEB. Proteinuria significant. 1. Uncontrolled HTN s/p cardene drip now on oral meds; likely renovascular in etiology: either due to process in kidneys or KALEB; consider adding losartan 25 mg daily or [address] of hydralazine 2. 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 Likely underlying CKD Recommend: Renal artery doppler Ok for discharge once Bp controlled I will arrange renal f/u with her in [place] office at her request Time Spent With Patient Time: Total time spent is greater than 50% in coordination of care (as documented) at patient's floor/unit and/or counseling patient: Progress Note: Quality Stroke Does the patient have a stroke diagnosis?: No
[2022-01-19] MEDS: Sodium Bicarbonate 650 MG TABLET PO ×2 (12:27→20:52)
--- NOTE | 2022-01-19 12:35 | HO.PM.IMPN ---
Subjective Subjective Date of Service: 01/19/22 Interval History: seen and examined this morning follow up for COLTON, uncontrolled hypertension BP still uncontrolled, no chest pain, palpitations, shortness of breath, vision changes Review of Systems Review of Systems: Yes all other systems are reviewed and are negative Constitutional Constitutional: Denies chills and Denies fever(s) Eyes Eyes: Denies blurry vision and Denies itchy eyes ENT Ears, Nose, Mouth, and Throat: Denies dizziness Cardiovascular Cardiovascular: Denies chest pain, Denies palpitations and Denies dyspnea Respiratory Respiratory: Denies cough, Denies dyspnea and Denies wheezing Gastrointestinal Gastrointestinal: Denies abdominal pain, Denies nausea and Denies vomiting Musculoskeletal Musculoskeletal: Denies myalgias, Denies arthralgias and Denies joint swelling Integumentary/Breasts Skin/Breast: Denies rash Neurologic Neurologic: Denies dizziness and Denies memory loss Psychiatric Psychiatric: Denies abnormal sleep pattern, Denies anxiety and Denies memory loss Endocrine Endocrine: Denies palpitations Hematologic/Lymphatic Hematologic/Lymphatic: Denies easy bruising Allergic/Immunologic Allergic/Immunologic: Denies itchy eyes, Denies seasonal rhinorrhea and Denies wheezing Physical Exam Vital Signs: Vital Signs: Last Vital Signs Temp 97.5 F 01/19/22 07:41 Pulse 85 01/19/22 07:41 Resp 20 01/19/22 07:41 BP 182/100 H 01/19/22 12:31 Pulse Ox 98 01/19/22 07:41 O2 Del Method 01/19/22 07:41 BMI result Body Mass Index 33.6 Const: General: comfortable, no acute distress, alert and awake Nutritional Appearance: overweight Orientation/consciousness: patient oriented x3 Resp: Effort & Inspection: normal respiratory effort and able to speak in complete sentences Cardio: Rate: regular rate Heart sounds: S1 normal heart sound present and S2 normal heart sound present GI: Palpation (GI): Soft to palpation and nontender Skin: Other: erythema, dry crusting lesions right forehead,eyelid Neuro: General: patient oriented x3 Extrem: General: Yes no pedal edema Objective Data Active Medications Acetaminophen (Acetaminophen 325 Mg Tablet) 650 mg PO Q4H PRN PRN Reason: Pain, Moderate (Pain Scale 4-6 Last Admin: 01/19/22 09:19 Dose: 650 mg Documented By: GELA Amlodipine Besylate (Amlodipine Besylate 10 Mg Tablet) 10 mg PO DAILY [facility]; Protocol Last Admin: 01/19/22 09:19 Dose: 10 mg Documented By: GELA Comments: BP- 211/110 on the left and 228/115 on the right Carvedilol (Carvedilol 25 Mg Tablet) 25 mg PO BID [facility]; Protocol Last Admin: 01/19/22 09:17 Dose: 25 mg Documented By: GELA Comments: BP- 211/110 on the left and 228/115 on the right Heparin Sodium (Porcine) (Heparin Sodium,Porcine 5,000 Unit/Ml Vial) 5,000 unit SUBCUT Q8H [facility] Last Admin: 01/19/22 12:27 Dose: Not Given Documented By: GELA Non-Admin Reason: Patient Refused Hydralazine HCl (Hydralazine Hcl 20 Mg/Ml Vial) 5 mg IVPUSH Q6H PRN; Protocol PRN Reason: SBP >180 DBP >105 Last Admin: 01/18/22 05:41 Dose: 5 mg Documented By: MARQUIS Losartan Potassium (Losartan Potassium 25 Mg Tablet) 25 mg PO DAILY [facility]; Protocol Sodium Bicarbonate (Sodium Bicarbonate 650 Mg Tablet) 650 mg PO BID [facility] Last Admin: 01/19/22 12:27 Dose: 650 mg Documented By: GELA Labs CBC & Chem 7: 01/18/22 05:21 01/19/22 10:39 Labs: Laboratory Results - last 24 hr 01/19/22 10:39 Anion Gap 15 Estim Creat Clear Calc 19.0 Estimated GFR 16 Random Glucose 172 H Calcium 9.0 Assessment and Plan (1) Acute renal failure: Status: Acute (2) Hypertensive urgency: Status: Acute Plan This is a 66 year old female initially seen on 01/11 and diagnosed with zozter, seen again in ED 01/12 with confusion and found to have rhabdo/renal failure but left ED AMA at that time, she returned 01/16 and was admitted to the ICU with COLTON and hypertensive crisis poorly responsive to IV labetalol and requiring Cardene drip, downgrade from the ICU on 01/17 Uncontrolled HTN s/p cardene drip bp still elevated was not on BP meds prior to admission continue Norvasc, coreg will add losartan as patient does not want ANGELINA follow bp closely nephro following -US to eval for KALEB pending Acute renal failure unclear baseline creatinine down from 4.22 on admission, but still elevated, GRF 19 renal US showing b/l renal cysts otherwise unremarkable serologic workup pending does not want renal bx on this admission despite recommendation from nephrology Metabolic acidosis secondary to COLTON -will start sodium bicarb -follow renal function Shingles initially diagnosed 01/11 and prescribed valacyclovir seen in outpatient setting by Ophthalmology reports had hallucinations and confusion with valacyclovir and stopped it dvt ppx - heparin patient requires ongoing inpatient hospitalization due to uncontrolled hypertension and need for close blood pressure monitoring, monitoring for COLTON and renal function Quality Stroke Does the patient have a stroke diagnosis?: No VTE Prior VTE?: No VTE Risk Level:: Medical - moderate - high VTE Device Contraindication: Treatment Not Indicated VTE Drug Contraindication: N/A - Med Ordered
[2022-01-19] MEDS: Losartan Potassium 25 MG TABLET PO ×2 (13:08→19:28)
[2022-01-20 01:04] VITALS: BP 180/84; PULSE 79
[2022-01-20 03:33] VITALS: BP 190/100; PULSE 73
[2022-01-20] MEDS: hydrALAZINE HCl 50 MG TABLET PO ×3 (03:44→22:07)
[2022-01-20] MEDS: Acetaminophen 325 MG TABLET PO (03:48)
[2022-01-20 05:12] VITALS: BMI 33.6
[2022-01-20 06:45] LABS: Hematocrit 31.8 % (37.0-47.0); Hemoglobin 10.4 g/dl (12.0-16.0); Mean Corpuscular HGB Conc 32.7 g/dl (31.0-35.0); Mean Corpuscular Hemoglobin 29.2 pg (27.0-33.0); Mean Corpuscular Volume 89.3 fL (80.0-98.0); Mean Platelet Volume 9.5 fL (9.4-12.3); Platelet Count 331 X10*3/uL (160-400); Red Blood Count 3.56 X10*6/uL (4.20-5.50); Red Cell Distribution Width 13.4 % (11.0-16.0)
[2022-01-20 07:10] LABS: Anion Gap 13 (12-20); Blood Urea Nitrogen 39 mg/dL (9-16); Carbon Dioxide 16 mmol/L (22-29); Chloride 114 mmol/L (96-108); Creatinine Clr Calc Pharmacy 19.5; Estimated Glomerular Filt Rate 16; Glucose Random 116 mg/dL (60-115); Potassium 5.2 mmol/L (3.3-5.1); Sodium 138 mmol/L (135-145)
--- NOTE | 2022-01-20 07:24 | PC.NURSE ---
Pt received second dose of hydralazine at 0344. Pt refused vital check hour later and stated she wanted to be left alone until 0700 so she could sleep.
[2022-01-20 09:10] VITALS: BP 204/112; PULSE 64; RESP 16; O2SAT 99
[2022-01-20] MEDS: Sodium Bicarbonate 650 MG TABLET PO ×2 (09:10→22:07)
[2022-01-20] MEDS: carvediloL 25 MG TABLET PO (09:10)
[2022-01-20] MEDS: amLODIPine Besylate 10 MG TABLET PO (09:10)
[2022-01-20] MEDS: Acetaminophen 325 MG TABLET 650 MG PO ×2 (09:13→22:06)
--- NOTE | 2022-01-20 11:00 | PC.NURSE ---
Patient's IV line removed at this time; redness, warmth at site, oozy purulent drainage noted; see IV documentation for further details. Patient refused to have another IV placed at this time.
[2022-01-20] MEDS: Losartan Potassium 50 MG TABLET PO (11:17)
[2022-01-20 11:19] VITALS: BP 190/96
[2022-01-20] MEDS: Sodium Zirconium Cyclosilicate 10 GM POWD.PACK PO (11:26)
--- NOTE | 2022-01-20 11:31 | P.PNIM_ITS ---
Subjective Subjective Date of Service: 01/20/22 <Marcella Abbott NP - Last Filed: 01/20/22 11:57> 01/22/22 <Casey Ragland MD - Last Filed: 01/22/22 10:05> Review of Systems Follow-up hypertensive emergency Patient denies chest pain, shortness breath, nausea, vomiting, diarrhea <Marcella Abbott NP - Last Filed: 01/20/22 11:57> Physical Exam Vital Signs: Vital Signs: Last Vital Signs Temp 96.9 F 01/19/22 19:04 Pulse 73 01/20/22 03:33 Resp 18 01/19/22 19:04 BP 190/100 H 01/20/22 03:33 Pulse Ox 99 01/19/22 19:04 O2 Del Method 01/19/22 19:04 BMI result Body Mass Index 33.6 <Marcella Abbott NP - Last Filed: 01/20/22 11:57> Appearing in no acute distress lung sounds are clear to auscultation heart regular rate rhythm, clear S1, S2 positive bowel sounds, abdomen is soft, nontender neuro patient is alert x3, no focal deficits <Marcella Abbott NP - Last Filed: 01/20/22 11:57> Objective Data Active Medications Acetaminophen (Acetaminophen 325 Mg Tablet) 650 mg PO Q4H PRN PRN Reason: Pain, Moderate (Pain Scale 4-6 Last Admin: 01/20/22 09:13 Dose: 650 mg Documented By: GELA Amlodipine Besylate (Amlodipine Besylate 10 Mg Tablet) 10 mg PO DAILY [facility]; Protocol Last Admin: 01/20/22 09:10 Dose: 10 mg Documented By: GELA Carvedilol (Carvedilol 25 Mg Tablet) 25 mg PO BID [facility]; Protocol Last Admin: 01/20/22 09:10 Dose: 25 mg Documented By: GELA Heparin Sodium (Porcine) (Heparin Sodium,Porcine 5,000 Unit/Ml Vial) 5,000 unit SUBCUT Q8H [facility] Last Admin: 01/20/22 11:22 Dose: Not Given Documented By: GELA Non-Admin Reason: Patient Refused Hydralazine HCl (Hydralazine Hcl 20 Mg/Ml Vial) 5 mg IVPUSH Q6H PRN; Protocol PRN Reason: SBP >180 DBP >105 Last Admin: 01/18/22 05:41 Dose: 5 mg Documented By: MARQUIS Losartan Potassium (Losartan Potassium 50 Mg Tablet) 50 mg PO DAILY [facility]; Protocol Last Admin: 01/20/22 11:17 Dose: 50 mg Documented By: GELA Comments: BP-190/96 Sodium Bicarbonate (Sodium Bicarbonate 650 Mg Tablet) 650 mg PO BID [facility] Last Admin: 01/20/22 09:10 Dose: 650 mg Documented By: GELA <Marcella Abbott NP - Last Filed: 01/20/22 11:57> Labs CBC & Chem 7: : 01/20/22 06:23 01/20/22 23:54 <Marcella Abbott NP - Last Filed: 01/20/22 11:57> Labs: Laboratory Results - last 24 hr 01/20/22 01/20/22 06:23 06:23 MCV 89.3 MCH 29.2 MCHC 32.7 RDW 13.4 Plt Count 331 MPV 9.5 Absolute Nucleated RBC 0.000 Nucleated RBC % (auto) 0.0 Anion Gap 13 Estim Creat Clear Calc 19.5 Estimated GFR 16 Random Glucose 116 H Calcium 9.0 <Marcella Abbott NP - Last Filed: 01/20/22 11:57> Assessment and Plan (1) Acute renal failure: Status: Acute <Marcella Abbott NP - Last Filed: 01/20/22 11:57> (2) Hypertensive urgency: Status: Acute <Marcella Abbott NP - Last Filed: 01/20/22 11:57> Assessment and Plan: This is a 66 year old female initially seen on 01/11 and diagnosed with zozter, seen again in ED 01/12 with confusion and found to have rhabdo/renal failure but left ED AMA at that time, she returned 01/16 and was admitted to the ICU with COLTON and hypertensive crisis poorly responsive to IV labetalol and requiring Cardene drip, downgrade from the ICU on 01/17 Uncontrolled HTN s/p cardene drip bp still elevated was not on BP meds prior to admission continue Norvasc, coreg. losartan will add hydralazine 50 mg b.i.d. nephro following US to eval for KALEB pending Acute renal failure unclear baseline creatinine down from 4.22 on admission, but still elevated, GRF 19 renal US showing b/l renal cysts otherwise unremarkable serologic workup pending does not want renal bx on this admission despite recommendation from nephrology Hyperkalemia jean carlos powers for tommorrow Metabolic acidosis secondary to COLTON sodium bicarb Shingles initially diagnosed 01/11 and prescribed valacyclovir seen in outpatient setting by Ophthalmology reports had hallucinations and confusion with valacyclovir and stopped it dvt ppx - heparin Attending Dr. Ragland full code patient requires ongoing inpatient hospitalization due to uncontrolled hypertension and need for close blood pressure monitoring, monitoring for COLTON and renal function <Marcella Abbott NP - Last Filed: 01/20/22 11:57> Quality Stroke Does the patient have a stroke diagnosis?: No <Marcella Abbott NP - Last Filed: 01/20/22 11:57> VTE Prior VTE?: No <Marcella Abbott NP - Last Filed: 01/20/22 11:57> VTE Risk Level:: Medical - moderate - high <Marcella Abbott NP - Last Filed: 01/20/22 11:57> VTE Device Contraindication: Treatment Not Indicated <Marcella Abbott NP - Last Filed: 01/20/22 11:57> VTE Drug Contraindication: N/A - Med Ordered <Marcella Abbott NP - Last Filed: 01/20/22 11:57>
--- NOTE | 2022-01-20 12:37 | MHC.CM.PN ---
spoke with pt about leave of abscence etc she states she spoke with hr here at [facility] [place] and can obtain her own pcp
[2022-01-20 13:31] LABS: Complement C3 115 mg/dL (83-193)
[2022-01-20 14:56] LABS: IgA 215 mg/dL (70-320); IgG 829 mg/dL (600-1540); IgM 65 mg/dL (50-300)
[2022-01-20 15:35] VITALS: BP 206/104; PULSE 73; RESP 17; TEMP 36.6; O2SAT 98
--- NOTE | 2022-01-20 16:38 | P.PNNP_ITS ---
Subjective Subjective Date of Service: 01/20/22 Interval history: Seen and examined, events noted Physical Exam Vital Signs: Vital Signs: Last Vital Signs Temp 97.8 F 01/20/22 15:35 Pulse 73 01/20/22 15:35 Resp 17 01/20/22 15:35 BP 206/104 H 01/20/22 15:35 Pulse Ox 98 01/20/22 15:35 O2 Del Method 01/20/22 15:35 BMI result Body Mass Index 33.6 Const: General: cooperative, comfortable, no acute distress, alert and awake Nutritional Appearance: not obese and overweight Orientation/consciousness: oriented to person, oriented to place, patient oriented x3 and Other orientation findings ( oriented) Limitations: no limitations HEENT: Other: Patient does have erythema with healing herpes zoster lesions on her right forehead, scalp and right periorbital area. Head: Yes normocephalic and Yes atraumatic Ears: external ears normal General nose exam: Normal external nose present Face and sinus: Yes normal facial exam Mouth: Normal oral and palatal mucosa present and no other ( thrush) Throat: Yes posterior or opharynx normal and No postnasal drainage Eyes: General: appearance normal, both eyes and all related structures Sclerae: sclerae normal Pupils: Equal, round and reactive pupils present EOM: EOMs intact bilaterally Neck: Neck: Yes normal visual inspection, Yes no lymphadenopathy, Yes trachea midline and Yes supple Lymphatic: no lymphadenopathy noted Chest: Chest palpation & inspection: normal inspection of the chest and normal palpation of entire chest wall Resp: Effort & Inspection: normal respiratory effort, able to speak in complete sentences, no respiratory distress and no use of accessory muscles Auscultation: clear to auscultation bilaterally and diminished lung sounds Cardio: Rate: regular rate Rhythm: regular rhythm Heart sounds: S1 normal heart sound present, S2 normal heart sound present, no gallops, no murmurs and no rubs GI: Inspection: Yes normal to inspection Palpation (GI): Soft to palpation, nontender, no guarding and Other GI palpation findings present ( Nontender) Auscultation: normal bowel sounds : General: Yes no CVA tenderness Back/Spine/Pelvis: Back: no CVA tenderness Skin: Other: erythema, dry crusting lesions right forehead,eyelid General skin exam: no rashes or lesions noted and other ( warm) Rashes: no rashes Neuro: General: oriented to person, oriented to place, patient oriented x3 and moves all extremities Cranial nerves: Yes CN's II-XII intact bilaterally and Yes Equal, round and reactive pupils present Cognition (Neuro): normal c ognition Motor exam (neuro): 5/5 motor strength present throughout Extrem: General: Yes normal to inspection, Yes no pedal edema, No clubbing, No cyanosis and No edema Psych: Appearance: grossly normal Speech and movement: Normal speech and movement present Affect: normal affect Attitude: cooperative Thought process: Normal thought process present Thought content: Normal thought content present Objective Data Labs CBC & Chem 7: 01/20/22 06:23 01/20/22 06:23 Labs: Laboratory Results - last 24 hr 01/16/22 01/20/22 01/20/22 19:12 06:23 06:23 WBC 9.0 RBC 3.56 L Hgb 10.4 L Hct 31.8 L MCV 89.3 MCH 29.2 MCHC 32.7 RDW 13.4 Plt Count 331 MPV 9.5 Absolute Nucleated RBC 0.000 Nucleated RBC % (auto) 0.0 Sodium 138 Potassium 5.2 H Chloride 114 H Carbon Dioxide 16 L Anion Gap 13 BUN 39 H Creatinine 2.91 H Estim Creat Clear Calc 19.5 Estimated GFR 16 Random Glucose 116 H Calcium 9.0 IgG Total 829 IgA Total 215 IgM 65 BRIT Interpretation SEE NOTE Complement C3 115 Complement C4 41 Microbiology Microbiology Results: Microbiology 01/16/22 Unknown Urine clean catch - Urine orellana top Urine Culture - Final Procedures Date of Service Date of Service: 01/20/22 Assessment & Plan Assessment and plan (1) Hypertensive urgency: Status: Acute (2) Acute renal failure: Status: Acute Plan This is a 66 year old female initially seen on 01/11 and diagnosed with zozter, seen again in ED 01/12 with confusion and found to have rhabdo/renal failure but left ED AMA at that time, she returned 01/16 and was admitted to the ICU with COLTON and hypertensive crisis poorly responsive to IV labetalol and requiring Cardene drip. Bp not better with amlodipine, carvedilol and hydralazine. Has proteinuria and hematuria. Serologies pending for workup of intrinsic renal process. She declines biopsy at this time. Renal US shos unilateral renal atrophy: 8.4 and 10.4 cm kidneys raising suspicion for KALEB. Proteinuria significant. 1. Severe resistant HTN: w/u 2ry causes underway; doppler neg for KALEB; pheo and primary hyperaldo being r/o control BP remains challenging --still high despite\coreg 25 bid norvasc 10 cozaar 50 hydralazine 50 bid h/o HTN but per PT never on meds in past 2. COLTON on ques CKD: looks like COLTON from HTN emergency and now some renal improvement but suspect signif ischemic renal dis--time will tell degreee of renal recovery; sero w/u for other causes of COLTON/CKD thus ar neg/normal 3. HyperK: may limit ability to use RASi REC: add tosemide 40 qd ( I started) ; hold am cozaar incase K elevated; start clonidine once pheo labs are done; track BPs She prefer seeing a female Doc--so will arrange f/u as outpt with Dr Dickerson Time Spent With Patient Time: Total time spent is greater than 50% in coordination of care (as documented) at patient's floor/unit and/or counseling patient: Progress Note: Quality Stroke Does the patient have a stroke diagnosis?: No
[2022-01-20] MEDS: Torsemide 20 MG TABLET 40 MG PO (18:31)
[2022-01-20 20:00] VITALS: BP 180/98; PULSE 78; RESP 18; TEMP 36.9; O2SAT 98
[2022-01-21] VITALS: BP 190/98
[2022-01-21] MEDS: Doxazosin Mesylate 2 MG TABLET PO ×2 (00:02→09:32)
[2022-01-21 00:20] LABS: Anion Gap 15 (12-20); Carbon Dioxide 17 mmol/L (22-29); Chloride 112 mmol/L (96-108); Potassium 4.7 mmol/L (3.3-5.1); Sodium 139 mmol/L (135-145)
[2022-01-21 08:00] VITALS: BP 192/102; PULSE 83; RESP 20; TEMP 36.6; O2SAT 99
[2022-01-21] MEDS: Losartan Potassium 50 MG TABLET PO (09:32)
[2022-01-21] MEDS: amLODIPine Besylate 10 MG TABLET PO (09:33)
[2022-01-21] MEDS: hydrALAZINE HCl 50 MG TABLET PO (09:33)
[2022-01-21] MEDS: Sodium Bicarbonate 650 MG TABLET PO (09:33)
[2022-01-21] MEDS: Torsemide 20 MG TABLET 40 MG PO (09:33)
--- NOTE | 2022-01-21 10:17 | PC.NURSE ---
Patient left AMA after speaking with [employer] INTERN at the time of morning rounds. Patient was informed of the dangers of leaving hospital against medical advice. Patient signed the release and walked out by herself.
--- NOTE | 2022-01-21 11:20 | MHC.CM.PN ---
per rounds pt to leave ama
--- NOTE | 2022-01-21 12:59 | PM.DS ---
DS: Providers Provider Date of Service: 01/21/22 Date of admission: 01/16/22 16:06 Primary care physician: None Physician Consults: 01/16/22 14:35 Consult to Nephrology Stat Consulting Provider: Manoj Montaño Reason for consultation: Hypertension, renal failure Attending physician on discharge: Casey Ragland Discharging clinician: Marcella Abbott DS: Diagnosis Discharge Diagnosis (1) Hypertensive urgency: Status: Acute (2) Acute renal failure: Status: Acute DS: Summary Hospital Course Hospital Course: HP as per admitting provider 66-year-old lady with recent history of facial Zoster treated with valacyclovir complicated by rhabdomyolysis and renal failure now being admitted? After sent from her primary care office for hypertensive crisis with systolic blood pressure in 240s.? On ER evaluation patient with hypertensive emergency poorly responsive to initial parenteral labetalol requiring initiation of Cardene drip . Patient left against medical advice, aware that her treatment has not been completed and she is at risk for worsening of her condition including stroke, cardiac arrest including she was okay with that and decided to leave against medical advice Uncontrolled HTN. Treatment was not completed as patient left against medical advice s/p cardene drip bp still elevated was not on BP meds prior to admission continue Norvasc, coreg. losartan, hydralazine, torsemide nephro following, follow-up outpatient US to eval for KALEB negative Acute renal failure. Treatment was not completed as patient left against medical advice unclear baseline creatinine down from 4.22 on admission, but still elevated, GRF 19 renal US showing b/l renal cysts otherwise unremarkable serologic workup pending does not want renal bx on this admission despite recommendation from nephrology Hyperkalemia lokelma Metabolic acidosis secondary to COLTON sodium bicarb Shingles initially diagnosed 01/11 and prescribed valacyclovir seen in outpatient setting by Ophthalmology reports had hallucinations and confusion with valacyclovir and stopped it Time Spent with Patient Time attestation: Total time spent providing and/or coordinating discharge services: Discharge coordination time: Greater than 30 minutes Quality: Safe Use of Opioids Does Pt have an Active Cancer Diagnosis on the Problem List?: No Quality: Stroke Does the patient have a stroke diagnosis?: No Physical Exam Vital Signs: Vital Signs: Last Vital Signs Temp 97.8 F 01/21/22 08:00 Pulse 83 01/21/22 08:00 Resp 20 01/21/22 08:00 BP 192/102 H 01/21/22 08:00 Pulse Ox 99 01/21/22 08:00 O2 Del Method 01/21/22 08:00 BMI result Body Mass Index 33.6 Left against medical advice DS: Data Data Completed and Pending Labs on day of discharge: Laboratory Results - last 24 hr 01/16/22 01/16/22 01/20/22 19:12 20:45 23:54 Sodium 139 Potassium 4.7 Chloride 112 H Carbon Dioxide 17 L Anion Gap 15 IgG Total 829 IgA Total 215 IgM 65 BRIT Interpretation SEE NOTE Urine Immunofixation Complement C3 115 Complement C4 41 Discharge Plan Discharge Anticipated Discharge Date/Time: 01/21/22 12:48 Patient Disposition: Left Against Medical Advice Discharge Diagnosis: Hypertensive emergency/urgency Acute renal failure Referrals: Bob Colbert MD [Physician] - 1 Week Discharge Medications: New amlodipine 10 mg tablet 10 mg PO DAILY Qty: 30 0RF hydralazine 50 mg tablet 50 mg PO BID Qty: 60 0RF torsemide 40 mg tablet 40 mg PO DAILY Qty: 30 0RF doxazosin 2 mg tablet 2 mg PO BEDTIME Qty: 30 0RF doxazosin [Cardura] 2 mg tablet 2 mg PO DAILY Qty: 30 0RF losartan [Cozaar] 50 mg tablet 50 mg PO DAILY Qty: 30 0RF Continued multivitamin Tablet 1 tab PO DAILY lysine [L-Lysine] 500 mg Tablet 1,000 mg PO DAILY black cohosh 200 mg Capsule 200 mg PO DAILY copper 3 mg Tablet 3 mg PO DAILY [id number]-hops 490 mg Capsule 1 cap PO DAILY Discharge Orders: Discharge Order (Routine); Ordered 01/21/22 Ordered By: Marcella Abbott Diet: Advance to usual diet Activity on Discharge: As tolerated Care Plan Goals: Left against medical advice Health Concerns: Hypertensive emergency/urgency Acute renal failure Plan of Treatment: Follow-up with your dental insurance coordinator and primary care provider regarding her blood pressure. Unfortunately decided to leave against medical advice and your treatment was not completed. Assessment: See discharge summary Discharge Date/Time: 01/21/22 10:45
[2022-01-22 12:56] LABS: Anti DNA DS Antibody <1 IU/mL; Anti Glomerular Basement Memb <1.0 AI; Myeloperoxidase Antibody <1.0 AI; Proteinase 3 PR3 Antibodies <1.0 AI
[2022-01-26 08:03] LABS: Cryoglobulin, Qual NONE DETECTED
[2022-01-26 12:17] LABS: Catecholamine Frac, Total 1031 pg/mL
== END 2022-01-21 10:45 | disposition left against medical advice (07) | DRG 683 ==
LOC: HO.ED 16:25 → HO.EDOVER 16:33 → HO.ICU 18:02 → HO.IMC 01-18 13:32
PROVIDERS: Internal Medicine Nephrology; Physician Assistant Medical; Admitting Provider Internal Medicine Pulmonary Disease; Emergency Provider Emergency Medicine Emergency Medical Services; Visit Provider Nurse Practitioner Acute Care
DX: N17.9 Acute kidney failure, unspecified (principal); E87.2 Acidosis; I16.1 Hypertensive emergency; I12.9 Hypertensive chronic kidney disease with stage 1 through stage 4 chronic kidney disease, or unspecified chronic kidney disease; N18.9 Chronic kidney disease, unspecified; E87.5 Hyperkalemia; B02.9 Zoster without complications; Z88.0 Allergy status to penicillin; Z79.899 Other long term (current) drug therapy
CPT/HCPCS: 36415; 76775; 80048; 80051; 80053; 81001; 82088; 82384; 82550; 82595; 82784; 83520; 83605; 83615; 83690; 83735; 84100; 84156; 84484; 85025; 85027; 85610; 85730; 86021; 86160; 86225; 86334; 86335; 86704; 86706; 86709; 86803; 87086; 87340; 93005; 93975; 96374; 99285